=== PATIENT | male | born 1935 ===

== ENCOUNTER 2017-03-19 10:02 | Inpatient (IN) | payer MEDICARE ==
[2017-03-19 10:04] VITALS: BMI 28.1
[2017-03-19] MEDS ORDERED: TDAP Vaccine 0.5 mL Syr IM ONE (10:41)
[2017-03-19 10:58] LABS: BASO % 0.1 % (0.0-2.0); EOS % 0.3 % (0.0-4.0); HEMATOCRIT 26.8 % (35.0-51.0); LYMPH # 0.7 K/uL (1.0-4.3); LYMPH % 7.1 % (20.0-40.0); MEAN CELL VOLUME 68.1 fl (80.0-94.0); MEAN CORPUSCULAR HEMOGLOBIN 20.3 pg (27.0-31.0); MEAN CORPUSCULAR HGB CONC 29.8 g/dL (33.0-37.0); MEAN PLATELET VOLUME 8.9 fl (7.2-11.7); MONO # 0.7 K/uL (0.0-0.8); MONO % 7.5 % (0.0-10.0); NEUT # 8.5 K/uL (1.8-7.0); NRBC % 0.1 % (0.0-0.0); PLATELET COUNT 232 K/uL (130-400); RED CELL DISTRIBUTION WIDTH 18.7 % (11.5-14.5)
--- NOTE | 2017-03-19 10:58 | ED PDOC ---
Syncope/Near Syncope/Dizziness Time Seen by Provider: 03/19/17 10:17 Chief Complaint (Nursing): Dizziness/Lightheaded Chief Complaint (Provider): Dizziness History Per: Patient Additional Complaint(s): Pt is an 81 yr old male who states that he was shopping for groceries at the store and his cart wheeled away from him (it "got loose") he felt off balance when he didn't have the support of his cart and he fell to the ground and hit the right side of his face on the ground. When EMS came and he later went to stand up he felt very dizzy (almost passed out--describes it as a lightheadedness). Pt states that his face does not hurt. No LOC. No CISNEROS. No CP. His tetanus immunization status is not UTD. Pt also c/o of a mass on his sternum (manubrium) for about a month--this mass has come and gone in the past. No neck pain. Pt with no additional complaints at this time. PMD: Dr. Roman ([place]) . Past Medical History Reviewed: Historical Data, Nursing Documentation, Vital Signs Vital Signs: Last Vital Signs Temp 98.8 F 03/19/17 10:04 Pulse 96 H 03/19/17 10:04 Resp 17 03/19/17 10:04 BP 98/61 L 03/19/17 10:04 Pulse Ox 95 03/19/17 10:04 - Medical History PMH: Diabetes, HTN, Hypercholesterolemia - Family History Family History: States: No Known Family Hx - Social History Current smoker - smoking cessation education provided: No Ex-Smoker (has not smoked in the last 12 months): No Alcohol: None Drugs: Denies - Immunization History Hx Tetanus Toxoid Vaccination: No - Home Medications Home Medications: Ambulatory Orders Medication Instructions Recorded Linagliptin [Tradjenta] 5 mg PO DAILY 03/19/17 Metoprolol Succinate [Toprol XL] 25 mg PO DAILY 03/19/17 Simvastatin [Zocor] 20 mg PO HS 03/19/17 Tamsulosin [Flomax] 0.8 mg PO HS 03/19/17 - Allergies Allergies/Adverse Reactions: Allergies Allergy/AdvReac Type Severity Reaction Status Date / Time No Known Allergies Allergy Verified 03/19/17 10:13 Review of Systems ROS Statement: Except As Marked, All Systems Reviewed And Found Negative Constitutional: Negative for: Fever Cardiovascular: Negative for: Chest Pain Respiratory: Negative for: Shortness of Breath Gastrointestinal: Negative for: Nausea, Vomiting, Abdominal Pain Neurological: Positive for: Dizziness. Negative for: Weakness Physical Exam - Reviewed Nursing Documentation Reviewed: Yes Vital Signs Reviewed: Yes - Physical Exam Appears: Positive for: Well, No Acute Distress Head Exam: Positive for: NORMOCEPHALIC Skin: Positive for: Warm, Dry ((+) facial abrasions to right side of face; no laceration repair(s) required) Eye Exam: Positive for: Normal appearance ENT: Positive for: Normal ENT Inspection Neck: Positive for: Normal, Painless ROM Cardiovascular/Chest: Positive for: Regular Rate, Rhythm, Chest Non Tender, Other ((+) large, soft, nontender mass located at manubrium) Respiratory: Positive for: Normal Breath Sounds. Negative for: Rales, Rhonchi, Wheezing Gastrointestinal/Abdominal: Positive for: Normal Exam, Bowel Sounds, Soft. 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 Pt is also w/ low H/H. Therefore, pt with true symptomatic anemia. I just sent stool for occult blood--will f/u lab result. Will admit to Dr. Jagdish Guerrero service--case handed off to Dr. Guerrero Disposition - Clinical Impression Clinical Impression: Dizziness, Symptomatic anemia, Fall, Near syncope, Facial contusion - Patient ED Disposition Is Patient to be Admitted: Yes - Disposition Disposition Time: 13:08 Condition: FAIR
[2017-03-19 10:59] LABS: ALB/GLOB RATIO 1.1 (1.0-2.1); ALKALINE PHOSPHATASE 261 U/L (38-126); ALT/SGPT 40 U/L (21-72); AST/SGOT 77 U/L (17-59); BILIRUBIN,TOTAL 0.8 mg/dl (0.2-1.3); BLOOD UREA NITROGEN 20 mg/dl (9-20); CALCIUM 8.9 mg/dL (8.4-10.2); CARBON DIOXIDE 24 mmol/L (22-30); CHLORIDE 101 mmol/L (98-107); GFR AFRICAN-AMERICAN > 60; GLUCOSE,RANDOM 289 mg/dL (75-110); MAGNESIUM 1.7 MG/DL (1.6-2.3); PHOSPHOROUS 2.6 mg/dl (2.5-4.5); POTASSIUM 3.9 MMOL/L (3.6-5.0); SODIUM 135 mmol/l (132-148); TOTAL PROTEIN 7.5 G/DL (6.3-8.2)
[2017-03-19] MEDS ORDERED: Sodium Chloride 0.9% 500 ML IV SCH (11:15)
[2017-03-19 11:30] LABS: EOSINOPHIL 1 % (0-7); NEUTROPHIL 84 % (42-75); TOTAL CELLS COUNTED 100
--- NOTE | 2017-03-19 11:49 | CT ---
PROCEDURE: CT HEAD WITHOUT CONTRAST. HISTORY: Pt with dizziness and near syncope COMPARISON: None available. TECHNIQUE: Axial computed tomography images were obtained through the head/brain without intravenous contrast. Radiation dose: Total exam DLP = 1035.31 mGy-cm. This CT exam was performed using one or more of the following dose reduction techniques: Automated exposure control, adjustment of the mA and/or kV according to patient size, and/or use of iterative reconstruction technique. FINDINGS: HEMORRHAGE: No intracranial hemorrhage. BRAIN: No mass effect or edema. Moderate atrophy is noted. There is also mild white matter changes suggestive but nonspecific for chronic microvascular ischemic disease. VENTRICLES: Unremarkable. No hydrocephalus. CALVARIUM: Unremarkable. PARANASAL SINUSES: Unremarkable as visualized. No significant inflammatory changes. MASTOID AIR CELLS: Unremarkable as visualized. No inflammatory changes. OTHER FINDINGS: None. IMPRESSION: No evidence of acute intracranial hemorrhage territorial infarct mass effect or midline shift. Moderate atrophy and mild chronic microvascular white matter ischemic disease.
[2017-03-19 11:50] LABS: PARTIAL THROMBOPLASTIN TIME 28.9 Seconds (25.6-37.1)
--- NOTE | 2017-03-19 12:22 | CT ---
PROCEDURE: CT ORBITS WITHOUT CONTRAST. HISTORY: Pt fell and hit the right side of his face r/o fx COMPARISON: None available. TECHNIQUE: Axial CT images of the orbits were obtained. Coronal and sagittal reformats were generated. Radiation dose: Total exam DLP = 731.14 mGy-cm. This CT exam was performed using one or more of the following dose reduction techniques: Automated exposure control, adjustment of the mA and/or kV according to patient size, and/or use of iterative reconstruction technique. FINDINGS: RIGHT ORBIT: RIGHT BONY ORBIT: Normal. RIGHT INTRAORBITAL STRUCTURES: Globe: Normal. Extraocular muscles: Normal. Post septal space: Normal. Optic Nerve: Normal. Lacrimal Apparatus: Normal. RIGHT PRESEPTAL SOFT TISSUES: Mild soft tissue swelling seen at the right preseptal region. LEFT ORBIT: LEFT BONY ORBIT: Normal. LEFT INTRAORBITAL STRUCTURES: Globe: Normal. Extraocular muscles: Normal. Post septal space: Normal Optic Nerve: Normal. . Lacrimal Apparatus: Normal. LEFT PRESEPTAL SOFT TISSUES: Mild left preseptal soft tissue swelling seen. OTHER: Nasal septum deviation to the left is noted. IMPRESSION: No evidence of acute displaced fracture at the maxillofacial bones and orbits noted in this exam. [id number] periorbital soft tissue swelling seen bilaterally right more than left. No evidence of retrobulbar hematoma.
--- NOTE | 2017-03-19 14:49 | RAD ---
HISTORY: syncope COMPARISON: No prior. FINDINGS: LUNGS: Focal opacity in left upper lobe seen adjacent to the aortic arch. Nonspecific. This could represent focal infiltrate or neoplasm. Followup advised. PLEURA: No significant pleural effusion identified, no pneumothorax apparent. CARDIOVASCULAR: Normal. OSSEOUS STRUCTURES: No significant abnormalities. VISUALIZED UPPER ABDOMEN: Normal. OTHER FINDINGS: None. IMPRESSION: Focal opacity in left upper lobe. Nonspecific. Followup advised. Cannot exclude neoplastic disease. Consider evaluation with chest CT examination if clinically appropriate.
[2017-03-19 19:19] LABS: IRON 21 ug/dL (49-181)
[2017-03-19 20:53] LABS: RBC URINE 2 /hpf (0-3); URINE BACTERIA RARE (<OCC); URINE BILIRUBIN NEGATIVE (NEGATIVE); URINE BLOOD NEGATIVE (NEGATIVE); URINE COLOR YELLOW (YELLOW); URINE GLUCOSE (UA) >=500 mg/dL (Normal); URINE KETONE TRACE mg/dL (NEGATIVE); URINE LEUKOCYTE ESTERASE TRACE Leu/uL (Negative); URINE PROTEIN 30 mg/dL (NEGATIVE); URINE UROBILINOGEN 0.2-1.0 mg/dL (0.2-1.0); WBC URINE 34 /hpf (0-5)
[2017-03-19] MEDS: Insulin Regular 100 units/ml SC SCH (21:24)
--- NOTE | 2017-03-19 23:12 | CP.PCM.CON ---
History of Present Illness - History of Present Illness History of Present Illness: 81 YO SP FALL AND HEAD TRAUMA. PT DENIES LH, DIZZINESS, SYNCOPE, CP, PALP, N/V PRIOR TO FALL. HE STATES HE LEANED ON HIS SHOPPING CART AND IT MOVED FORWARD CAUSING HIM TO FALL. HE ADMITS TO DIZZINESS AFTER FALL AND STANDING. PT DENIES CARDIAC HX. HE HAS HX OF HTN, DYSLIPIDEMIA, DM. UNSURE IF HE HAS HAD ECHO OR ST. PTS EKG REVEALS SR, LAD, AND BIFASICULAR BLOCK. GIVEN AGE FAM HX IS NONCONT. IN ER PT WAS ORTHOSTATIC AND FOUND TO BE SEVERELY ANEMIC. ADDITIONALLY PT HAS A NECK MASS WHICH HE STATES COMES AND GOES. Review of Systems - Constitutional Constitutional: As Per HPI. absent: Anorexia, Chills, Daytime Sleepiness, Excessive Sweating, Fatigue, Fever, Frequent Falls, Headache, Increased Appetite , Lethargy, Malaise, Night Sweats, Snoring, Sleep Apnea, Weight Gain, Weight Loss, Weakness, Other - EENT Eyes: absent: As Per HPI, Blind Spots, Blurred Vision, Change in Vision, Decreased Night Vision, Diplopia, Discharge, Dry Eye, Exophthalmos, Floaters, Irritation, Itchy Eyes, Loss of Peripheral Vision, Pain, Photophobia, Requires Corrective Lenses, Sees Flashes, Spots in Vision, Tunnel Vision, Other Visual Disturbances, Loss of Vision, Other Ears: absent: As Per HPI, Decreased Hearing, Ear Discharge, Ear Pain, Tinnitus, Abnormal Hearing, Disequilibrium, Dizziness, Other Nose/Mouth/Throat: absent: As Per HPI, Epistaxis, Nasal Congestion, Nasal Discharge, Nasal Obstruction, Nasal Trauma, Nose Pain, Post Nasal Drip, Sinus Pain, Sinus Pressure, Bleeding Gums, Change in Voice, Dental Pain, Dry Mouth, Dysphagia, Halitosis, Hoarsness, Lip Swelling, Mouth Lesions, Mouth Pain, Odynophagia, Sore Throat, Throat Swelling, Tongue Swelling, Facial Pain, Neck Pain, Neck Mass, Other - Cardiovascular Cardiovascular: As Per HPI. absent: Acrocyanosis, Chest Pain, Chest Pain at Rest, Chest Pain with Activity, Claudication, Diaphoresis, Dyspnea, Dyspnea on Exertion, Edema, Irregular Heart Rhythm, Pain Radiating to Arm/Neck/Jaw, Leg Edema, Leg Ulcers, Lightheadedness, Orthopnea, Palpitations, Paroxysmal Nocturnal Dyspnea, Pedal Edema, Radiating Pain, Rapid Heart Rate, Slow Heart Rate, Syncope, Other - Respiratory Respiratory: As Per HPI. absent: Cough, Dyspnea, Hemoptysis, Dyspnea on Exertion, Wheezing, Snoring, Stridor, Pain on Inspiration, Chest Congestion, Excessive Mucous Production, Change in Mucous Color, Pain with Coughing, Other - Gastrointestinal Gastrointestinal: As Per HPI. absent: Abdominal Pain, Belching, Bloating, Change in Bowel Habits, Change in Stool Character, Coffee Ground Emesis, Constipation, Cramping, Diarrhea, Dyspepsia, Dysphagia, Early Satiety, Excessive Flatus, Fecal Incontinence, Heartburn, Hematemesis, Hematochezia, Loose Stools, Melena, Nausea, Odynophagia, Temesmus, Vomiting, Other - Genitourinary Genitourinary: As Per HPI. absent: Change in Urinary Stream, Difficulty Urinating, Dysuria, Flank Pain, Hematuria, Pyuria, Nocturia, Urinary Incontinence, Urinary Frequency, Urinary Hesitance, Urinary Urgency, Voiding Freq/Small Amts, Freq UTI, Hx Renal/Bladder Calculi, Hx /Renal Surgery, Bladder Distension, Other - Musculoskeletal Musculoskeletal: absent: As Per HPI, Abnormal Gait, Arthralgias, Atrophy, Back Pain, Deformity, Joint Swelling, Limited Range of Motion, Loss of Height, Muscle Cramps, Muscle Weakness, Myalgias, Neck Pain, Numbness, Radiating Pain into Limb, Stiffness, Tingling, Other - Integumentary Integumentary: absent: As Per HPI, Acne, Alopecia, Bleeding Lesions, Change in Hair, Change in Nails, Change in Pigmentation, Changing Lesions, Dry Skin, Erythema, Furuncle, Hirsutism, Lesions, New Lesions, Non-Healing Lesions, Photosensitivity, Pruritus, Rash, Skin Pain, Skin Ulcer, Sores, Striae, Swelling , Unusual Bruising, Wounds, Jaundice, Other - Neurological Neurological: absent: As Per HPI, Abnormal Gait, Abnormal Hearing, Abnormal Movements, Abnormal Speech, Behavioral Changes, Burning Sensations, Confusion, Convulsions, Disequilibrium, Dizziness, Numbness, Focal Weakness, Frequent Falls , Headaches, Lack of Coordination, Loss of Vision, Memory Loss, Paresthesias, Radicular Pain, Restless Legs, Sensory Deficit, Syncope, Tingling, Tremor, Vertigo, Weakness, Other Visual Disturbances, Other - Psychiatric Psychiatric: absent: As Per HPI, Abnormal Sleep Pattern, Anhedonia, Anxiety, Auditory Hallucinations, Behavioral Changes, Change in Appetite, Change in Libido, Confusion, Depression, Difficulty Concentrating, Hallucinations, Homicidal Ideation, Hopelessness, Irritability, Memory Loss, Mood Swings, Panic Attacks, Paranoia, Suicidal Ideation, Visual Hallucinations, Tactile Hallucinations, Other - Endocrine Endocrine: absent: As Per HPI, Change in Body Appearance, Change in Libido, Cold Intolorance, Deepening of Voice, Excessive Sweating, Fatigue, Flushing, Heat Intolorance, Increase in Ring/Shoe/Hat Size, Palpitations, Polydipsia, Polyphagia, Polyuria, Other - Hematologic/Lymphatic Hematologic: absent: As Per HPI, Easy Bleeding, Easy Bruising, Lymphadenopathy, Other Past Patient History - Tetanus Immunizations Tetanus Immunization: Unknown - Past Medical History & Family History Past Medical History?: Yes - Past Social History Smoking Status: Never Smoked Chewing Tobacco Use: No Cigar Use: No Alcohol: None Drugs: Denies Home Situation {Lives}: Alone Domestic Violence: Negative - CARDIAC Hx Cardiac Disorders: Yes Hx Hypertension: Yes - PULMONARY Hx Respiratory Disorders: No - NEUROLOGICAL Hx Neurological Disorder: No - HEENT Hx HEENT Problems: No - RENAL Hx Chronic Kidney Disease: No - ENDOCRINE/METABOLIC Hx Endocrine Disorders: Yes Hx Diabetes Mellitus Type 2: Yes - HEMATOLOGICAL/ONCOLOGICAL Hx Blood Disorders: Yes Hx Anemia: Yes - INTEGUMENTARY Hx Dermatological Problems: No - MUSCULOSKELETAL/RHEUMATOLOGICAL Hx Musculoskeletal Disorders: No Hx Falls: Yes - GASTROINTESTINAL Hx Gastrointestinal Disorders: No - GENITOURINARY/GYNECOLOGICAL Hx Genitourinary Disorders: Yes Hx Prostate Problems: Yes (prostaectomy) - PSYCHIATRIC Hx Psychophysiologic Disorder: No Hx Substance Use: No - SURGICAL HISTORY Hx Surgeries: Yes Other/Comment: prostatectomy ,right hip replacement, - ANESTHESIA Hx Anesthesia: Yes Hx Anesthesia Reactions: No Hx Malignant Hyperthermia: No Has any member of the family had a problem w/ anesthesia?: No Meds Allergies/Adverse Reactions: Allergies Allergy/AdvReac Type Severity Reaction Status Date / Time No Known Allergies Allergy Verified 03/19/17 10:13 - Medications Medications: Current Medications Clopidogrel Bisulfate (Plavix) 75 mg PO DAILY TRE Insulin Human Regular (Humulin R) 0 units SC ACHS TRE PRN Reason: Protocol Last Admin: 03/19/17 21:24 Dose: Not Given Metoprolol Succinate (Toprol Xl) 25 mg PO DAILY REPLACED BY [facility] Sitagliptin Phosphate (Januvia) 100 mg PO DAILY REPLACED BY [facility] Tamsulosin HCl (Flomax) 0.8 mg PO HS REPLACED BY [facility] Last Admin: 03/19/17 21:24 Dose: 0.8 mg Physical Exam - Constitutional Appears: Well - Head Exam Additional comments: RIGHT TEMPORAL AND FRONTAL TRAUMA - Eye Exam Eye Exam: EOMI, Normal appearance, PERRL Pupil Exam: NORMAL ACCOMODATION, PERRL - ENT Exam ENT Exam: Mucous Membranes Moist, Normal Exam - Neck Exam Additional comments: LARGE RIGHT SIDED MASS - Respiratory Exam Respiratory Exam: Clear to Auscultation Bilateral, NORMAL BREATHING PATTERN. absent: Accessory Muscle Use, Chest Wall Tenderness, Decreased Breath Sounds, Prolonged Expiratory Phase, Rales, Rhonchi, Wheezes, Respiratory Distress, Stridor - Cardiovascular Exam Cardiovascular Exam: REGULAR RHYTHM, +S1, +S2, Systolic Murmur. absent: Bradycardia, Tachycardia, Clicks, Diastolic murmur, Gallop, Irregular Rhythm, JVD, RRR, Rubs, +S4 - GI/Abdominal Exam GI & Abdominal Exam: Normal Bowel Sounds, Soft. absent: Bruit, Diminished Bowel Sounds, Distended, Firm, Guarding, Hernia, Hyperactive Bowel Sounds, Hypoactive Bowel Sounds, Mass, Organomegaly, Pulsatile Mass, Rebound, Rigid, Tenderness - Rectal Exam Rectal Exam: Deferred - Extremities Exam Extremities exam: Positive for: normal inspection. Negative for: calf tenderness, full ROM, joint swelling, normal capillary refill, pedal edema, tenderness, pedal pulses present - Back Exam Back exam: NORMAL INSPECTION. absent: CVA tenderness (L), CVA tenderness (R), FULL ROM, muscle spasm, paraspinal tenderness, rash noted, tenderness, vertebral tenderness - Neurological Exam Neurological exam: Alert, Oriented x3, Reflexes Normal - Skin Skin Exam: Dry, Intact, Normal Color, Warm Results - Vital Signs Recent Vital Signs: Last Vital Signs Temp 98.3 F 03/19/17 20:10 Pulse 91 H 03/19/17 20:10 Resp 18 03/19/17 20:10 BP 120/70 03/19/17 20:10 Pulse Ox 96 03/19/17 20:10 - Labs Result Diagrams: 03/19/17 10:00 03/19/17 10:00 Labs: Laboratory Results - last 24 hr 03/19/17 03/19/17 03/19/17 13:56 15:55 18:20 Retic Count POC Glucose (mg/dL) 244 H 229 H Iron 21 L TIBC 404 % Saturation 5 L Ferritin Vitamin B12 Urine Color Urine Clarity Urine pH Ur Specific [place] Urine Protein Urine Glucose (UA) Urine Ketones Urine Blood Urine Nitrate Urine Bilirubin Urine Urobilinogen Ur Leukocyte Esterase Urine RBC (Auto) Urine Microscopic WBC Ur Squamous Epith Cells Urine Bacteria 03/19/17 03/19/17 03/19/17 18:20 18:20 20:18 Retic Count 2.0 H POC Glucose (mg/dL) Iron TIBC % Saturation Ferritin 10.4 Vitamin B12 408 Urine Color Yellow Urine Clarity Slighty-cloudy Urine pH 5.0 Ur Specific [place] 1.024 Urine Protein 30 Urine Glucose (UA) >=500 Urine Ketones Trace Urine Blood Negative Urine Nitrate Negative Urine Bilirubin Negative Urine Urobilinogen 0.2-1.0 Ur Leukocyte Esterase Trace Urine RBC (Auto) 2 Urine Microscopic WBC 34 H Ur Squamous Epith Cells < 1 Urine Bacteria Rare 03/19/17 21:24 Retic Count POC Glucose (mg/dL) 258 H Iron TIBC % Saturation Ferritin Vitamin B12 Urine Color Urine Clarity Urine pH Ur Specific [place] Urine Protein Urine Glucose (UA) Urine Ketones Urine Blood Urine Nitrate Urine Bilirubin Urine Urobilinogen Ur Leukocyte Esterase Urine RBC (Auto) Urine Microscopic WBC Ur Squamous Epith Cells Urine Bacteria - EKG Data EKG Interpreted by: Myself EKG shows normal: Sinus rhythm Rate: Normal - EKG Data EKG comments: SEE ABOVE Assessment & Plan (1) Fall Status: Acute (2) Orthostatic hypotension Status: Acute (3) Bifascicular block Status: Acute (4) Symptomatic anemia Status: Acute (5) Elevated BP without diagnosis of hypertension Status: Acute (6) Goiter Status: Acute (7) Facial contusion Status: Acute (8) Dizziness Status: Acute (9) Tachycardia Status: Acute - Assessment and Plan (Free Text) Plan: ALTHOUGH PT DENIES DIZZINESS OR LH PRIOR TO FALL, HE WAS ORTHOSTATIC IN ER AND DOES HAVE SEVERE ANEMIA, HYPOVOLEMIA AND BIFASICULAR BLOCK. PT SHOULD CONTINUE TELE MONITOR. EVAL ANEMIA, ECHO FOR EF, MONITOR LYTES, EEG, CONSIDER EVAL FOR OSTEOPOROSIS. PT HAS RIGHT NECK MASS WHICH APPARENTLY IS INTERMITTENT, WOULD CONSIDER EVAL FOR THYROID GOITER VS OTHER ETIOLOGY. WILL FOLLOW 85 MIN TOTAL CARE TIME
[2017-03-20] MEDS: Insulin Regular 100 units/ml SC SCH ×4 (06:33→21:51)
--- NOTE | 2017-03-20 06:57 | CON ---
DATE: 03/19/2017 LOCATION: The patient's room number is 404, bed 1. REASON FOR CONSULTATION: Dizziness. CHIEF COMPLAINT: The patient was admitted with a history of fall on losing balance while he was shopping. From neurologic point of view, I was called in to evaluate him for further management. HISTORY OF PRESENT ILLNESS: Mr. Keon Crane is an 81-year-old right-handed male while he was stopping in the [employer], the cart moved by itself without control. At the time to grab that cart, he lost his balance and hit his face against the hard surface on his right side. He denies any loss of consciousness. No history of involuntary movement or focal weakness following this. Because of his losing balance, the patient was brought in to [facility] for further evaluation. PAST MEDICAL HISTORY: Non-insulin dependent diabetes mellitus, prostate hypertrophy, hypertension, dyslipidemia. ALLERGIES: NO KNOWN ALLERGIES. PERSONAL HISTORY: Denies smoking or alcohol use. MEDICATIONS: Flomax, insulin, Januvia, and Toprol. REVIEW OF SYSTEMS: As per H and P. PHYSICAL EXAMINATION: VITAL SIGNS: Blood pressure 134/80, mean arterial pressure of 98, respiratory rate 16, and temperature afebrile. NECK: Supple. No carotid bruits. Examination also showed a huge thyromegaly noted, it is hard, nontender. HEART: Heart sounds are regular. CHEST: Fair air entry. EXTREMITIES: No edema on legs. Right side facial abrasion noted. NEUROLOGICAL: The patient is awake, alert, and oriented to person, place, and time. Speech is clear. Naming, repetition, fluency, comprehension all within normal. CRANIAL NERVES: Visual field intact. Pupils reactive to light. Extraocular movement normal. No facial sensory deficit. No facial asymmetry. Hearing is normal. Tongue is midline. Good gag. 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 There is significant weakness due to the pain. He could able to move both lower extremities against the gravity. DEEP TENDON REFLEXES: Biceps to brachialis, triceps 2+. Both knees are absent. Both ankles are absent. Feet has high-arched foot deformity. COORDINATION: [id number] test is intact on his left side. WORKUP: CT of the head reviewed, which does not show any acute pathology is noted. EKG, normal sinus rhythm. LABORATORY DATA: WBC 10.0, hemoglobin 8.0, hematocrit 26.8, and platelet 232. PT 14.5, INR 1.3, PTT 28.9. Sodium 135, potassium 3.9, chloride 101, bicarbonate 24, BUN 20, creatinine 0.8, GFR more than 60, glucose 229. AST 77, and alkaline phosphatase 269. RECOMMENDATIONS: 1. The patient should have MRI of the brain to rule out DIESEL [employer]TER ME[employer]IC territory ischemic process. 2. Carotid Doppler. 3. Anemia should be corrected. The patient should be placed on antiplatelets. This prevents stroke process. The patient should get out of the bed and physical therapy started as soon as possible. Nmoi Ge MD
[2017-03-20 08:00] LABS: ALKALINE PHOSPHATASE 223 U/L (38-126); ALT/SGPT 45 U/L (21-72); AST/SGOT 51 U/L (17-59); BILIRUBIN,TOTAL 1.4 mg/dl (0.2-1.3); BLOOD UREA NITROGEN 20 mg/dl (9-20); CALCIUM 8.8 mg/dL (8.4-10.2); CARBON DIOXIDE 26 mmol/L (22-30); CHLORIDE 102 mmol/L (98-107); GFR AFRICAN-AMERICAN > 60; GLUCOSE,RANDOM 184 mg/dL (75-110); POTASSIUM 3.6 MMOL/L (3.6-5.0); SODIUM 136 mmol/l (132-148)
[2017-03-20 08:02] LABS: CHOLESTEROL 108 mg/dL (0-199)
[2017-03-20] MEDS: Metoprolol Succinate 25 mg XL Tab PO SCH (08:21)
[2017-03-20 08:28] LABS: THYROID STIMULATING HORMONE 2.29 mIU/ML (0.46-4.68)
--- NOTE | 2017-03-20 10:33 | CARD ---
APPROVED REPORT EKG Measurement Heart [id number] <Conclusion> Normal sinus rhythm Right bundle branch block Left anterior fascicular block Bifascicular block Septal infarct, age undetermined Abnormal ECG
[2017-03-20 10:47] LABS: HEMATOCRIT 28.2 % (35.0-51.0); MEAN CELL VOLUME 70.9 fl (80.0-94.0); MEAN CORPUSCULAR HEMOGLOBIN 21.6 pg (27.0-31.0); MEAN CORPUSCULAR HGB CONC 30.5 g/dL (33.0-37.0); RED CELL DISTRIBUTION WIDTH 20.1 % (11.5-14.5); WHITE BLOOD COUNT 8.5 K/uL (4.8-10.8)
--- NOTE | 2017-03-20 11:10 | MRI ---
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 TECHNIQUE: Multiplanar, multisequence MR images of the brain were obtained without intravenous contrast enhancement. FINDINGS: HEMORRHAGE: None DWI: No evidence of an acute or early subacute infarction. BRAIN PARENCHYMA: No mass effect or edema. Chronic microvascular ischemic changes. VENTRICLES: Unremarkable. No hydrocephalus. CRANIUM: Unremarkable. ORBITS: Grossly unremarkable. PARANASAL SINUSES/MASTOIDS: Clear VASCULAR SYSTEM: Skull base flow voids intact. OTHER FINDINGS: None. IMPRESSION: No evidence of acute infarct..
--- NOTE | 2017-03-20 11:29 | CARD ---
APPROVED REPORT EXAM: Two-dimensional and M-mode echocardiogram with Doppler and color Doppler. Other Information Quality : GoodRhythm : NSR INDICATION Syncope 2D DIMENSIONS IVSd1.16 (0.7-1.1cm)LVDd3.96 (3.9-5.9cm) LVOT Diameter3.10 (1.8-2.4cm)PWd1.15 (0.7-1.1cm) IVSs1.11 (0.8-1.2cm)LVDs2.28 (2.5-4.0cm) FS (%) 42.4 %PWs1.24 (0.8-1.2cm) M-Mode DIMENSIONS Left Atrium (MM)4.45 (2.5-4.0cm)IVSd1.25 (0.7-1.1cm) Aortic Root3.46 (2.2-3.7cm)LVDd6.51 (4.0-5.6cm) Aortic Cusp Exc.1.58 (1.5-2.0cm)PWd1.47 (0.7-1.1cm) IVSs1.69 cmFS (%) 42 % LVDs3.75 (2.0-3.8cm)PWs1.91 cm Mitral Valve E/A ratio0.0 TDI E/Lateral E'0.0E/Medial E'0.0 LEFT VENTRICLE The left ventricle is normal size. There is normal left ventricular wall thickness. The left ventricular function is normal. The left ventricular ejection fraction is - 70%. There is normal LV segmental wall motion. Transmitral Doppler flow pattern is abnormal. No left ventricle thrombus noted on this study. There is no ventricular septal defect visualized. There is no left ventricular aneurysm. There is no mass noted in the left ventricle. RIGHT VENTRICLE The right ventricle is normal size. There is normal right ventricular wall thickness. The right ventricular systolic function is normal. ATRIA The left atrium is mildly dilated. There is no thrombus suspected in the left atrium. The right atrium size is normal. The interatrial septum is intact with no evidence for an atrial septal defect. AORTIC VALVE The aortic valve is mildly thickened. No aortic regurgitation is present. There is no aortic valvular stenosis. MITRAL VALVE The mitral valve is normal in structure and function. There is no evidence of mitral valve prolapse. There is no mitral valve stenosis. There is no mitral valve regurgitation noted. TRICUSPID VALVE The tricuspid valve is normal in structure and function. There is trace tricuspid regurgitation. There is no tricuspid valve prolapse or vegetation. There is no tricuspid valve stenosis. PULMONIC VALVE The pulmonic valve is not well visualized. Doppler studies of the PV were not performed. GREAT VESSELS The aortic root is normal in size. The IVC was not well visualized. PERICARDIAL EFFUSION Very small anterior echo free space. There is no pleural effusion. <Conclusion> The left ventricle is normal in size and wall thickness. The left ventricular function is normal. The left ventricular ejection fraction is - 70%. The left atrium is mildly dilated. The aortic valve is mildly thickened but not stenotic. The mitral aor tricuspid valves are normal.
--- NOTE | 2017-03-20 11:58 | CT ---
PROCEDURE: CT Chest without contrast HISTORY: shreya opacity COMPARISON: None. TECHNIQUE: Contiguous axial images were obtained through the chest without intravenous contrast enhancement. Sagittal and coronal reconstructions were performed. Radiation dose (DLP): 736 mGy-cm. This CT exam was performed using one or more of the following dose reduction techniques: Automated exposure control, adjustment of the mA and/or kV according to patient size, and/or use of iterative reconstruction technique. FINDINGS: LUNGS: 4.8 x 5.4 centimeter left upper lobe mass with mediastinal pleural attachment. Additional intraparenchymal nodule measuring 1 centimeter in the right upper lobe. MEDIASTINUM: Unremarkable thoracic aorta. No aneurysm. Normal sized heart. Main pulmonary artery unremarkable. No vascular congestion. No lymphadenopathy. PLEURA: No pleural fluid. No pneumothorax. 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 Destructive changes of both proximal clavicles. Mass-effect upon the right lobe of the thyroid and pre vascular structures in the superior mediastinum. UPPER ABDOMEN: Cholelithiasis. OTHER FINDINGS: None. IMPRESSION: 4.8 x 5.4 centimeter left upper lobe mass with mediastinal pleural attachment. Additional intraparenchymal nodule measuring 1 centimeter in the right upper lobe. 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 Destructive changes of both proximal clavicles. Mass-effect upon the right lobe of the thyroid and pre vascular structures in the superior mediastinum.
--- NOTE | 2017-03-20 12:25 | CP.PCM.PN ---
Subjective - Date & Time of Evaluation Date of Evaluation: 03/20/17 Time of Evaluation: 15:32 - Subjective Subjective: no dizziness or sob Objective - Vital Signs/Intake and Output Vital Signs (last 24 hours): Temp Pulse Resp BP Pulse Ox 98.2 F 82 18 135/80 97 03/20/17 12:13 03/20/17 12:13 03/20/17 12:13 03/20/17 12:13 03/20/17 12:13 Intake and Output: 03/20/17 03/20/17 06:59 18:59 Intake Total 770 Output Total 700 Balance 70 - Medications Medications: Current Medications Clopidogrel Bisulfate (Plavix) 75 mg PO DAILY [facility] Last Admin: 03/20/17 08:20 Dose: 75 mg Insulin Human Regular (Humulin R) 0 units SC [facility] PRN Reason: Protocol Last Admin: 03/20/17 06:33 Dose: 1 u Metoprolol Succinate (Toprol Xl) 25 mg PO DAILY [facility] Last Admin: 03/20/17 08:21 Dose: 25 mg Sitagliptin Phosphate (Januvia) 100 mg PO DAILY [facility] Last Admin: 03/20/17 08:20 Dose: 100 mg Tamsulosin HCl (Flomax) 0.8 mg PO HS [facility] Last Admin: 03/19/17 21:24 Dose: 0.8 mg - Labs Labs: 03/20/17 10:30 03/20/17 06:00 PT 14.5 Seconds (9.8-13.1) H 03/19/17 11:10 INR 1.3 (0.9-1.2) H 03/19/17 11:10 APTT 28.9 Seconds (25.6-37.1) 03/19/17 11:10 - Constitutional Appears: Non-toxic - Head Exam Head Exam: ATRAUMATIC, NORMAL INSPECTION, NORMOCEPHALIC - Eye Exam Eye Exam: EOMI, Normal appearance, PERRL. absent: Conjunctival injection, Nystagmus, Periorbital swelling, Periorbital tenderness, Scleral icterus Pupil Exam: NORMAL ACCOMODATION, PERRL - ENT Exam ENT Exam: Mucous Membranes Moist, Normal Exam. absent: Mucous Membranes Dry, Normal External Ear Exam, Normal Oropharynx, TM's Normal Bilaterally - Neck Exam Neck Exam: absent: Full ROM, Lymphadenopathy, Meningismus, Normal Inspection, Tenderness, Thyromegaly Additional comments: large right sided neck mass - Respiratory Exam Respiratory Exam: Clear to Ausculation Bilateral, NORMAL BREATHING PATTERN - Cardiovascular Exam Cardiovascular Exam: REGULAR RHYTHM, +S1, +S2, Murmur. absent: Bradycardia, Tachycardia, Clicks, Diastolic murmur, Gallop, Irregular Rhythm, JVD, RRR, Rubs , +S4 - GI/Abdominal Exam GI & Abdominal Exam: Soft, Normal Bowel Sounds. absent: Bruit, Distended, Firm , Guarding, Rigid, Tenderness, Diminished Bowel Sounds, Hernia, Hyperactive Bowel Sounds, Hypoactive Bowel Sounds, Organomegaly, Pulsatile Mass, Rebound, Mass - Rectal Exam Rectal Exam: Deferred - Extremities Exam Extremities Exam: Full ROM, Normal Capillary Refill, Normal Inspection. absent : Joint Swelling, Pedal Edema - Back Exam Back Exam: NORMAL INSPECTION. absent: CVA tenderness (L), CVA tenderness (R), Full ROM, muscle spasm, paraspinal tenderness, rash noted, tenderness, vertebral tenderness - Neurological Exam Neurological Exam: Alert, Awake, CN II-XII Intact, Normal Gait, Oriented x3. absent: Abnormal Gait, Altered, Motor Sensory Deficit, Reflexes Normal - Psychiatric Exam Psychiatric exam: Normal Affect, Normal Mood. absent: Agitated, Anxious, Depressed, Flat Affect, Homicidal Ideation, Manic, Suicidal Ideation - Skin Skin Exam: Dry, Intact, Normal Color, Warm. absent: Abrasion, Cyanosis, Diaphoretic, Erythema, Mottled, Pallor, Pallor, Petechiae, Rash, Urticaria, Vesicles Assessment and Plan (1) Fall Status: Acute (2) Orthostatic hypotension Status: Acute (3) Bifascicular block Status: Acute (4) Symptomatic anemia Status: Acute (5) Elevated BP without diagnosis of hypertension Status: Acute (6) Goiter Status: Acute (7) Facial contusion Status: Acute (8) Dizziness Status: Acute (9) Tachycardia Status: Acute - Assessment and Plan (Free Text) Plan: echo shows nml ef pt remains anemic and prerenal await anemia stahl f/u on xrays thyroid panel mildly abn 45 min
--- NOTE | 2017-03-20 13:39 | CP.PCM.HP ---
History of Present Illness - History of Present Illness History of Present Illness: CC: Fall. 81 y/o M brought to ER [facility] to be evaluated for head trauma after a fall while shopping on [place], Pt do not report pain from injuries. Pt hit his R face with the ground after he felt off balance driving a shopping cart that wheeled away from him wile at a grocery store, Pt was on the floor at the arrival of EMS and at the time they help Pt to stand up Pt felt dizziness and likely near syncope, Pt was brought to hospital and was admitted. Worsening symptoms: Severe anemia Hgb 8.0, c/o of a mass in his sternum , that Patient notivced for months , found with lung and chest mass on CT. Pt denied: Fever, chills, n/v/d, palpitations, CP, SOB, cough, sick contact. CT Chest showed: JOSÉ MIGUEL mass with mediatinal pleural attachment, RUL nodule. 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 Mass R lobe of the thyroid. Shoulder X-Ray: Nodular density overlying the R midlung zone. Echo: LV normal function, LVEF 70%. Present on Admission - Present on Admission Any Indicators Present on Admission: No Review of Systems - Constitutional Constitutional: Other (fall.) - EENT Eyes: Other (Orbital swelling R>L.) Ears: Other (negative) Nose/Mouth/Throat: Neck Mass Additional comments: Facial abrasion R side - Cardiovascular Cardiovascular: Other (negative) - Respiratory Respiratory: Other (negative) - Gastrointestinal Gastrointestinal: Other (negative) - Genitourinary Genitourinary: Other (negative) - Musculoskeletal Musculoskeletal: Other (negative) - Integumentary Integumentary: Swelling (2nd to fall) - Neurological Neurological: Other (negative) - Psychiatric Psychiatric: Other (negative) - Endocrine Endocrine: Other (negative) - Hematologic/Lymphatic Hematologic: Other (negative) Past Patient History - Tetanus Immunizations Tetanus Immunization: Unknown - Past Medical History & Family History Past Medical History?: Yes Pertinent Family History: Unknown - Past Social History Smoking Status: Never Smoked Chewing Tobacco Use: No Cigar Use: No Alcohol: None Drugs: Denies Home Situation {Lives}: Alone Domestic Violence: Negative - CARDIAC Hx Cardiac Disorders: Yes Hx Hypertension: Yes - PULMONARY Hx Respiratory Disorders: Yes Hx Pulmonary Embolism: Yes - NEUROLOGICAL Hx Neurological Disorder: No - HEENT Hx HEENT Problems: No - RENAL Hx Chronic Kidney Disease: No - ENDOCRINE/METABOLIC Hx Endocrine Disorders: Yes Hx Diabetes Mellitus Type 2: Yes - HEMATOLOGICAL/ONCOLOGICAL Hx Blood Disorders: Yes Hx Anemia: Yes - INTEGUMENTARY Hx Dermatological Problems: No - MUSCULOSKELETAL/RHEUMATOLOGICAL Hx Musculoskeletal Disorders: Yes Hx Falls: Yes - GASTROINTESTINAL Hx Gastrointestinal Disorders: No - GENITOURINARY/GYNECOLOGICAL Hx Genitourinary Disorders: Yes Hx Prostate Problems: Yes (prostaectomy) - PSYCHIATRIC Hx Psychophysiologic Disorder: No Hx Substance Use: No - SURGICAL HISTORY Hx Surgeries: Yes Other/Comment: prostatectomy ,right hip replacement, - ANESTHESIA Hx Anesthesia: Yes Hx Anesthesia Reactions: No Hx Malignant Hyperthermia: No Has any member of the family had a problem w/ anesthesia?: No Meds Allergies/Adverse Reactions: Allergies Allergy/AdvReac Type Severity Reaction Status Date / Time No Known Allergies Allergy Verified 03/19/17 10:13 Physical Exam - Constitutional Appears: Other (negative) - Head Exam Additional comments: R temporal and frontal face ecchymosos - Eye Exam Eye Exam: Periorbital swelling - ENT Exam ENT Exam: Normal Oropharynx - Neck Exam Additional comments: Large R> L sided Sternum manubrium mass, firm , non tender, erythema skin covering the mass - Respiratory Exam Respiratory Exam: NORMAL BREATHING PATTERN - Cardiovascular Exam Cardiovascular Exam: REGULAR RHYTHM - GI/Abdominal Exam GI & Abdominal Exam: Normal Bowel Sounds, Soft - Extremities Exam Extremities exam: Positive for: normal inspection - Back Exam Back exam: NORMAL INSPECTION - Neurological Exam Neurological exam: Alert, Oriented x3 Additional comments: No focal motor/sensory deficit , Reflex normal - Psychiatric Exam Psychiatric exam: Normal Mood - Skin Skin Exam: Warm Results - Vital Signs Recent Vital Signs: Last Vital Signs Temp 98.2 F 03/20/17 12:13 Pulse 82 03/20/17 12:13 Resp 18 03/20/17 12:13 BP 135/80 03/20/17 12:13 Pulse Ox 97 03/20/17 12:13 reviewed Neli - Labs Result Diagrams: 03/24/17 05:45 03/24/17 05:45 Labs: Laboratory Results - last 24 hr 03/19/17 03/19/17 03/19/17 13:56 15:55 18:20 WBC RBC Hgb Hct MCV MCH MCHC RDW Plt Count Retic Count Sodium Potassium Chloride Carbon Dioxide Anion Gap BUN Creatinine Est GFR ( Amer) Est GFR (Non-Af Amer) POC Glucose (mg/dL) 244 H 229 H Random Glucose Calcium Iron 21 L TIBC 404 % Saturation 5 L Ferritin Total Bilirubin AST ALT Alkaline Phosphatase Lactate Dehydrogenase Total Protein Albumin Globulin Albumin/Globulin Ratio Triglycerides Cholesterol LDL Cholesterol Direct HDL Cholesterol Vitamin B12 Free T4 Thyroxine (T4) Total T3 TSH 3rd Generation Urine Color Urine Clarity Urine pH Ur Specific [place] Urine Protein Urine Glucose (UA) Urine Ketones Urine Blood Urine Nitrate Urine Bilirubin Urine Urobilinogen Ur Leukocyte Esterase Urine RBC (Auto) Urine Microscopic WBC Ur Squamous Epith Cells Urine Bacteria 03/19/17 03/19/17 03/19/17 18:20 18:20 20:18 WBC RBC Hgb Hct MCV MCH MCHC RDW Plt Count Retic Count 2.0 H Sodium Potassium Chloride Carbon Dioxide Anion Gap BUN Creatinine Est GFR ( Amer) Est GFR (Non-Af Amer) POC Glucose (mg/dL) Random Glucose Calcium Iron TIBC % Saturation Ferritin 10.4 Total Bilirubin AST ALT Alkaline Phosphatase Lactate Dehydrogenase Total Protein Albumin Globulin Albumin/Globulin Ratio Triglycerides Cholesterol LDL Cholesterol Direct HDL Cholesterol Vitamin B12 408 Free T4 Thyroxine (T4) Total T3 TSH 3rd Generation Urine Color Yellow Urine Clarity Slighty-cloudy Urine pH 5.0 Ur Specific [place] 1.024 Urine Protein 30 Urine Glucose (UA) >=500 Urine Ketones Trace Urine Blood Negative Urine Nitrate Negative Urine Bilirubin Negative Urine Urobilinogen 0.2-1.0 Ur Leukocyte Esterase Trace Urine RBC (Auto) 2 Urine Microscopic WBC 34 H Ur Squamous Epith Cells < 1 Urine Bacteria Rare 03/19/17 03/20/17 03/20/17 21:24 05:13 06:00 WBC RBC Hgb Hct MCV MCH MCHC RDW Plt Count Retic Count Sodium 136 Potassium 3.6 Chloride 102 Carbon Dioxide 26 Anion Gap 11 BUN 20 Creatinine 0.8 Est GFR ( Amer) > 60 Est GFR (Non-Af Amer) > 60 POC Glucose (mg/dL) 258 H 182 H Random Glucose 184 H Calcium 8.8 Iron TIBC % Saturation Ferritin Total Bilirubin 1.4 H AST 51 ALT 45 Alkaline Phosphatase 223 H Lactate Dehydrogenase 788 H Total Protein 7.0 Albumin 3.5 Globulin 3.5 Albumin/Globulin Ratio 1.0 Triglycerides 78 Cholesterol 108 LDL Cholesterol Direct 40 HDL Cholesterol 41 Vitamin B12 Free T4 Thyroxine (T4) 7.80 Total T3 0.704 L TSH 3rd Generation 2.29 Urine Color Urine Clarity Urine pH Ur Specific [place] Urine Protein Urine Glucose (UA) Urine Ketones Urine Blood Urine Nitrate Urine Bilirubin Urine Urobilinogen Ur Leukocyte Esterase Urine RBC (Auto) Urine Microscopic WBC Ur Squamous Epith Cells Urine Bacteria 03/20/17 03/20/17 03/20/17 06:00 06:00 10:30 WBC 8.5 RBC 3.98 L Hgb 8.6 L Hct 28.2 L MCV 70.9 L D MCH 21.6 L MCHC 30.5 L RDW 20.1 H Plt Count 192 Retic Count 2.0 H Sodium Potassium Chloride Carbon Dioxide Anion Gap BUN Creatinine Est GFR ( Amer) Est GFR (Non-Af Amer) POC Glucose (mg/dL) Random Glucose Calcium Iron TIBC % Saturation Ferritin Total Bilirubin AST ALT Alkaline Phosphatase Lactate Dehydrogenase Total Protein Albumin Globulin Albumin/Globulin Ratio Triglycerides Cholesterol LDL Cholesterol Direct HDL Cholesterol Vitamin B12 Free T4 1.07 Thyroxine (T4) Total T3 TSH 3rd Generation Urine Color Urine Clarity Urine pH Ur Specific [place] Urine Protein Urine Glucose (UA) Urine Ketones Urine Blood Urine Nitrate Urine Bilirubin Urine Urobilinogen Ur Leukocyte Esterase Urine RBC (Auto) Urine Microscopic WBC Ur Squamous Epith Cells Urine Bacteria 03/20/17 10:50 WBC RBC Hgb Hct MCV MCH MCHC RDW Plt Count Retic Count Sodium Potassium Chloride Carbon Dioxide Anion Gap BUN Creatinine Est GFR ( Amer) Est GFR (Non-Af Amer) POC Glucose (mg/dL) 249 H Random Glucose Calcium Iron TIBC % Saturation Ferritin Total Bilirubin AST ALT Alkaline Phosphatase Lactate Dehydrogenase Total Protein Albumin Globulin Albumin/Globulin Ratio Triglycerides Cholesterol LDL Cholesterol Direct HDL Cholesterol Vitamin B12 Free T4 Thyroxine (T4) Total T3 TSH 3rd Generation Urine Color Urine Clarity Urine pH Ur Specific [place] Urine Protein Urine Glucose (UA) Urine Ketones Urine Blood Urine Nitrate Urine Bilirubin Urine Urobilinogen Ur Leukocyte Esterase Urine RBC (Auto) Urine Microscopic WBC Ur Squamous Epith Cells Urine Bacteria reviewed J.P. - EKG Data EKG comments: reviewed J.P. - Impressions Impression: reviewed J.P. - Imaging and Cardiology Chest x-ray Status: Report reviewed by me (Jose MiguelP.) CT scan - chest Status: Report reviewed by me (Jose MiguelP.) CT scan - head Status: Report reviewed by me ([email or web address].) Additional comment: Orbit CT, Echo Reviewed JPedro Assessment & Plan (1) Near syncope Status: Acute Priority: High (2) Fall Status: Acute Priority: High (3) Symptomatic anemia Status: Acute Priority: High (4) Facial contusion Status: Acute Priority: High Comment: Right (5) Lung mass Status: Acute Priority: High (6) Neck mass Status: Acute Priority: High (7) Diabetes mellitus Status: Acute Priority: Medium (8) HTN (hypertension) Status: Acute Priority: Medium - Assessment and Plan (Free Text) Plan: F/U Carotid U-S, Continue , Metropolol, Insulin and rest of Tx, Neuro and Cardiology consult appreciated, GI and Hematology consult , IR consult for needle Bx neck mass - Date & Time Date: 03/20/17 Time: 12:30
[2017-03-20 17:13] LABS: FOLATE 18.8 ng/mL
--- NOTE | 2017-03-21 01:19 | CP.PCM.CON ---
History of Present Illness - History of Present Illness History of Present Illness: 81 yo male admitted after falling while grocery shopping. When trying to get up was found to be dizzy and brought to the ER. Review of Systems - Constitutional Constitutional: absent: Chills - EENT Eyes: absent: Change in Vision Ears: absent: Decreased Hearing Nose/Mouth/Throat: absent: Epistaxis - Cardiovascular Cardiovascular: absent: Chest Pain - Respiratory Respiratory: absent: Dyspnea - Gastrointestinal Gastrointestinal: absent: Abdominal Pain - Musculoskeletal Musculoskeletal: absent: Abnormal Gait Past Patient History - Tetanus Immunizations Tetanus Immunization: Unknown - Past Medical History & Family History Past Medical History?: Yes - Past Social History Smoking Status: Never Smoked Chewing Tobacco Use: No Cigar Use: No Alcohol: None Drugs: Denies Home Situation {Lives}: Alone Domestic Violence: Negative - CARDIAC Hx Cardiac Disorders: Yes Hx Hypertension: Yes - PULMONARY Hx Respiratory Disorders: No - NEUROLOGICAL Hx Neurological Disorder: No - HEENT Hx HEENT Problems: No - RENAL Hx Chronic Kidney Disease: No - ENDOCRINE/METABOLIC Hx Endocrine Disorders: Yes Hx Diabetes Mellitus Type 2: Yes - HEMATOLOGICAL/ONCOLOGICAL Hx Blood Disorders: Yes Hx Anemia: Yes - INTEGUMENTARY Hx Dermatological Problems: No - MUSCULOSKELETAL/RHEUMATOLOGICAL Hx Musculoskeletal Disorders: No Hx Falls: Yes - GASTROINTESTINAL Hx Gastrointestinal Disorders: No - GENITOURINARY/GYNECOLOGICAL Hx Genitourinary Disorders: Yes Hx Prostate Problems: Yes (prostaectomy) - PSYCHIATRIC Hx Psychophysiologic Disorder: No Hx Substance Use: No - SURGICAL HISTORY Hx Surgeries: Yes Other/Comment: prostatectomy ,right hip replacement, - ANESTHESIA Hx Anesthesia: Yes Hx Anesthesia Reactions: No Hx Malignant Hyperthermia: No Has any member of the family had a problem w/ anesthesia?: No Meds Allergies/Adverse Reactions: Allergies Allergy/AdvReac Type Severity Reaction Status Date / Time No Known Allergies Allergy Verified 03/19/17 10:13 - Medications Medications: Current Medications Clopidogrel Bisulfate (Plavix) 75 mg PO DAILY [facility] Last Admin: 03/20/17 08:20 Dose: 75 mg Insulin Human Regular (Humulin R) 0 units SC [facility] PRN Reason: Protocol Last Admin: 03/20/17 21:51 Dose: Not Given Metoprolol Succinate (Toprol Xl) 25 mg PO DAILY [facility] Last Admin: 03/20/17 08:21 Dose: 25 mg Pantoprazole Sodium (Protonix Ec Tab) 40 mg PO DAILY [facility] Sitagliptin Phosphate (Januvia) 100 mg PO DAILY [facility] Last Admin: 03/20/17 08:20 Dose: 100 mg Tamsulosin HCl (Flomax) 0.8 mg PO HS [facility] Last Admin: 03/20/17 21:08 Dose: 0.8 mg Physical Exam - Head Exam Additional comments: Ecchymosis from fall - Eye Exam Eye Exam: Normal appearance - ENT Exam ENT Exam: Mucous Membranes Moist - Neck Exam Additional comments: mass right side of neck - Respiratory Exam Respiratory Exam: Clear to Auscultation Bilateral - Cardiovascular Exam Cardiovascular Exam: REGULAR RHYTHM, +S1, +S2 - GI/Abdominal Exam GI & Abdominal Exam: Normal Bowel Sounds, Soft. absent: Tenderness Results - Vital Signs Recent Vital Signs: Last Vital Signs Temp 98.9 F 03/20/17 23:50 Pulse 91 H 03/20/17 23:50 Resp 20 03/20/17 23:50 BP 115/75 03/20/17 23:50 Pulse Ox 97 03/20/17 23:50 - Labs Result Diagrams: 03/20/17 10:30 03/20/17 06:00 Labs: Laboratory Results - last 24 hr 03/19/17 03/20/17 03/20/17 18:20 05:13 06:00 WBC RBC Hgb Hct MCV MCH MCHC RDW Plt Count Retic Count Sodium 136 Potassium 3.6 Chloride 102 Carbon Dioxide 26 Anion Gap 11 BUN 20 Creatinine 0.8 Est GFR ( Amer) > 60 Est GFR (Non-Af Amer) > 60 POC Glucose (mg/dL) 182 H Random Glucose 184 H Calcium 8.8 Total Bilirubin 1.4 H AST 51 ALT 45 Alkaline Phosphatase 223 H Lactate Dehydrogenase 788 H Total Protein 7.0 Albumin 3.5 Globulin 3.5 Albumin/Globulin Ratio 1.0 Triglycerides 78 Cholesterol 108 LDL Cholesterol Direct 40 HDL Cholesterol 41 Folate 18.8 RBC Folate >1000 Free T4 Thyroxine (T4) 7.80 Total T3 0.704 L TSH 3rd Generation 2.29 03/20/17 03/20/17 03/20/17 06:00 06:00 10:30 WBC 8.5 RBC 3.98 L Hgb 8.6 L Hct 28.2 L MCV 70.9 L D MCH 21.6 L MCHC 30.5 L RDW 20.1 H Plt Count 192 Retic Count 2.0 H Sodium Potassium Chloride Carbon Dioxide Anion Gap BUN Creatinine Est GFR ( Amer) Est GFR (Non-Af Amer) POC Glucose (mg/dL) Random Glucose Calcium Total Bilirubin AST ALT Alkaline Phosphatase Lactate Dehydrogenase Total Protein Albumin Globulin Albumin/Globulin Ratio Triglycerides Cholesterol LDL Cholesterol Direct HDL Cholesterol Folate RBC Folate Free T4 1.07 Thyroxine (T4) Total T3 TSH 3rd Generation 03/20/17 03/20/17 03/20/17 10:50 15:58 20:59 WBC RBC Hgb Hct MCV MCH MCHC RDW Plt Count Retic Count Sodium Potassium Chloride Carbon Dioxide Anion Gap BUN Creatinine Est GFR ( Amer) Est GFR (Non-Af Amer) POC Glucose (mg/dL) 249 H 201 H 258 H Random Glucose Calcium Total Bilirubin AST ALT Alkaline Phosphatase Lactate Dehydrogenase Total Protein Albumin Globulin Albumin/Globulin Ratio Triglycerides Cholesterol LDL Cholesterol Direct HDL Cholesterol Folate RBC Folate Free T4 Thyroxine (T4) Total T3 TSH 3rd Generation Assessment & Plan (1) Anemia Assessment and Plan: Patient with microcytic anemia and elevated BUN/creatinine. Stool negative for occult blood though he could have had a subacute GI bleed. Protonix started, upper endoscopy Wednesday. Oncology evaluation for lung mass and lesion of sternum Status: Acute - Date & Time Date: 03/20/17 Time: 23:45
[2017-03-21] MEDS: Insulin Regular 100 units/ml SC SCH ×4 (06:36→21:27)
[2017-03-21] MEDS: Pantoprazole 40 mg EC Tab PO SCH (09:10)
[2017-03-21] MEDS: Metoprolol Succinate 25 mg XL Tab PO SCH (09:10)
--- NOTE | 2017-03-21 09:56 | RAD ---
HISTORY: fall and pain COMPARISON: No prior FINDINGS: BONES: Normal. No fracture. JOINTS: Normal. No osteoarthritis. SOFT TISSUE: Normal. OTHER FINDINGS: 13 millimeter nodular density overlying the right midlung zone.. IMPRESSION: 13 millimeter nodular density overlying the right midlung zone.
--- NOTE | 2017-03-21 12:33 | CP.PCM.PN ---
Subjective - Date & Time of Evaluation Date of Evaluation: 03/21/17 Time of Evaluation: 10:35 - Subjective Subjective: F/U Lung Mass Pt with no c/o, no pain in the clavicular-sternal mass , but c/o of L shoulder pain, no SOB, no chest congestion, Pt went out this morning, in and out to the bed side commode and denied weakness. c/o of L shoulder pain. Objective - Vital Signs/Intake and Output Vital Signs (last 24 hours): Temp Pulse Resp BP Pulse Ox 98.7 F 80 18 124/74 94 L 03/21/17 08:29 03/21/17 09:10 03/21/17 08:29 03/21/17 09:10 03/21/17 08:29 - Medications Medications: Current Medications Clopidogrel Bisulfate (Plavix) 75 mg PO DAILY [facility] Last Admin: 03/21/17 09:09 Dose: 75 mg Insulin Human Regular (Humulin R) 0 units SC ACHS [facility] PRN Reason: Protocol Last Admin: 03/21/17 06:36 Dose: 1 u Metoprolol Succinate (Toprol Xl) 25 mg PO DAILY [facility] Last Admin: 03/21/17 09:10 Dose: 25 mg Pantoprazole Sodium (Protonix Ec Tab) 40 mg PO DAILY [facility] Last Admin: 03/21/17 09:10 Dose: 40 mg Sitagliptin Phosphate (Januvia) 100 mg PO DAILY [facility] Last Admin: 03/21/17 09:09 Dose: 100 mg Tamsulosin HCl (Flomax) 0.8 mg PO HS [facility] Last Admin: 03/20/17 21:08 Dose: 0.8 mg - Labs Labs: 03/20/17 10:30 03/20/17 06:00 PT 14.5 Seconds (9.8-13.1) H 03/19/17 11:10 INR 1.3 (0.9-1.2) H 03/19/17 11:10 APTT 28.9 Seconds (25.6-37.1) 03/19/17 11:10 - Constitutional Appears: No Acute Distress - Head Exam Additional comments: R temporal and frontal trauma, ecchymosis R face. - Eye Exam Eye Exam: Periorbital swelling - ENT Exam ENT Exam: Normal Oropharynx - Neck Exam Additional comments: Large R > L sternal manubrium supraclavicular neck mass - Respiratory Exam Respiratory Exam: NORMAL BREATHING PATTERN - Cardiovascular Exam Cardiovascular Exam: REGULAR RHYTHM - GI/Abdominal Exam GI & Abdominal Exam: Soft, Normal Bowel Sounds - Extremities Exam Extremities Exam: Normal Inspection - Back Exam Back Exam: NORMAL INSPECTION - Neurological Exam Neurological Exam: Alert, Oriented x3, Reflexes Normal. absent: Motor Sensory Deficit - Psychiatric Exam Psychiatric exam: Normal Mood - Skin Skin Exam: Warm Assessment and Plan (1) Lung mass Status: Acute (2) Neck mass Status: Acute (3) Near syncope Status: Acute (4) Facial contusion Status: Acute (5) Fall Status: Acute (6) Symptomatic anemia Status: Acute (7) Diabetes mellitus Status: Acute (8) HTN (hypertension) Status: Acute - Assessment and Plan (Free Text) Plan: Continue current Tx,Iron IV for Anemia and rest of treatment, IR for Needle Bx of the mass in AM.
--- NOTE | 2017-03-21 18:46 | CP.PCM.CON ---
History of Present Illness - History of Present Illness History of Present Illness: 81 year old male with a history of DM, admitted s/p fall while at the grocery store, found to be anemic and chest wall/lung mass concerning for malignancy. The patient notes to his shopping cart rolling which caused him to lose his balance and fall. He struck his right face and side. He denies loss of consciousness. He also noted to an upper chest wall/neck mass slowly growing for the past 2 months. He denies shortness of breath or trouble swallowing. Past medical history: DM Past surgical history: Right hip replacement Family history: Denies hematologic and oncologic problems Social history: Denies tobacco, alcohol, and illicit drug use. Allergies: NKA Review of systems: All remaining review of systems including HEENT, cardiovascular, respiratory, gastrointestinal, genitourinary, musculoskeletal, dermatologic, neurologic, and psychiatric are negative unless mentioned in the HPI. Past Patient History - Tetanus Immunizations Tetanus Immunization: Unknown - Past Medical History & Family History Past Medical History?: Yes - Past Social History Smoking Status: Never Smoked Chewing Tobacco Use: No Cigar Use: No Alcohol: None Drugs: Denies Home Situation {Lives}: Alone Domestic Violence: Negative - CARDIAC Hx Cardiac Disorders: Yes Hx Hypertension: Yes - PULMONARY Hx Respiratory Disorders: No - NEUROLOGICAL Hx Neurological Disorder: No - HEENT Hx HEENT Problems: No - RENAL Hx Chronic Kidney Disease: No - ENDOCRINE/METABOLIC Hx Endocrine Disorders: Yes Hx Diabetes Mellitus Type 2: Yes - HEMATOLOGICAL/ONCOLOGICAL Hx Blood Disorders: Yes Hx Anemia: Yes - INTEGUMENTARY Hx Dermatological Problems: No - MUSCULOSKELETAL/RHEUMATOLOGICAL Hx Musculoskeletal Disorders: No Hx Falls: Yes - GASTROINTESTINAL Hx Gastrointestinal Disorders: No - GENITOURINARY/GYNECOLOGICAL Hx Genitourinary Disorders: Yes Hx Prostate Problems: Yes (prostaectomy) - PSYCHIATRIC Hx Psychophysiologic Disorder: No Hx Substance Use: No - SURGICAL HISTORY Hx Surgeries: Yes Other/Comment: prostatectomy ,right hip replacement, - ANESTHESIA Hx Anesthesia: Yes Hx Anesthesia Reactions: No Hx Malignant Hyperthermia: No Has any member of the family had a problem w/ anesthesia?: No Meds Allergies/Adverse Reactions: Allergies Allergy/AdvReac Type Severity Reaction Status Date / Time No Known Allergies Allergy Verified 03/19/17 10:13 - Medications Medications: Current Medications Clopidogrel Bisulfate (Plavix) 75 mg PO DAILY [facility] Last Admin: 03/21/17 09:09 Dose: 75 mg Iron Sucrose 200 mg/ Sodium (Chloride) 110 mls @ 110 mls/hr IVPB DAILY [facility] Last Admin: 03/21/17 17:57 Dose: 110 mls/hr Insulin Human Regular (Humulin R) 0 units SC ACHS [facility] PRN Reason: Protocol Last Admin: 03/21/17 17:52 Dose: 1 u Metoprolol Succinate (Toprol Xl) 25 mg PO DAILY [facility] Last Admin: 03/21/17 09:10 Dose: 25 mg Pantoprazole Sodium (Protonix Ec Tab) 40 mg PO DAILY [facility] Last Admin: 03/21/17 09:10 Dose: 40 mg Sitagliptin Phosphate (Januvia) 100 mg PO DAILY [facility] Last Admin: 03/21/17 09:09 Dose: 100 mg Tamsulosin HCl (Flomax) 0.8 mg PO HS [facility] Last Admin: 03/20/17 21:08 Dose: 0.8 mg Physical Exam - Head Exam Additional comments: Right facial abrasion - Eye Exam Eye Exam: Normal appearance - ENT Exam ENT Exam: Mucous Membranes Dry - Respiratory Exam Respiratory Exam: NORMAL BREATHING PATTERN - Cardiovascular Exam Cardiovascular Exam: +S1, +S2 - GI/Abdominal Exam GI & Abdominal Exam: Normal Bowel Sounds - Extremities Exam Extremities exam: Positive for: normal inspection - Neurological Exam Neurological exam: Oriented x3 - Psychiatric Exam Psychiatric exam: Normal Affect, Normal Mood - Skin Skin Exam: Warm Results - Vital Signs Recent Vital Signs: Last Vital Signs Temp 98.7 F 03/21/17 16:26 Pulse 85 03/21/17 16:26 Resp 18 03/21/17 16:26 BP 121/76 03/21/17 16:26 Pulse Ox 96 03/21/17 16:26 - Labs Result Diagrams: 03/20/17 10:30 03/20/17 06:00 Labs: Laboratory Results - last 24 hr 03/19/17 03/20/17 03/21/17 18:20 20:59 05:35 POC Glucose (mg/dL) 258 H 167 H RBC Folate >1000 03/21/17 03/21/17 11:55 15:55 POC Glucose (mg/dL) 239 H 181 H RBC Folate Assessment & Plan (1) Anemia Assessment and Plan: work up consistent with iron deficiency anemia GI following will start IV iron Status: Acute (2) Lung mass Assessment and Plan: pleural and mediastinal involvment presternal/sternal mass recommend tissue biopsy to evaluate for malignancy Thank you for this interesting consult. Status: Acute
--- NOTE | 2017-03-21 22:45 | CP.PCM.PN ---
Subjective - Date & Time of Evaluation Date of Evaluation: 03/21/17 Time of Evaluation: 17:00 - Subjective Subjective: NO LH, PALP OR DIZZINESS Objective - Vital Signs/Intake and Output Vital Signs (last 24 hours): Temp Pulse Resp BP Pulse Ox 99.1 F 85 18 122/74 96 03/21/17 20:04 03/21/17 20:04 03/21/17 20:04 03/21/17 20:04 03/21/17 20:04 Intake and Output: 03/21/17 03/22/17 18:59 06:59 Intake Total 1300 Balance 1300 - Medications Medications: Current Medications Clopidogrel Bisulfate (Plavix) 75 mg PO DAILY [facility] Last Admin: 03/21/17 09:09 Dose: 75 mg Iron Sucrose 200 mg/ Sodium (Chloride) 110 mls @ 110 mls/hr IVPB DAILY [facility] Last Admin: 03/21/17 17:57 Dose: 110 mls/hr Insulin Human Regular (Humulin R) 0 units SC ACHS [facility] PRN Reason: Protocol Last Admin: 03/21/17 21:27 Dose: Not Given Metoprolol Succinate (Toprol Xl) 25 mg PO DAILY [facility] Last Admin: 03/21/17 09:10 Dose: 25 mg Pantoprazole Sodium (Protonix Ec Tab) 40 mg PO DAILY [facility] Last Admin: 03/21/17 09:10 Dose: 40 mg Sitagliptin Phosphate (Januvia) 100 mg PO DAILY [facility] Last Admin: 03/21/17 09:09 Dose: 100 mg Tamsulosin HCl (Flomax) 0.8 mg PO [facility] Last Admin: 03/21/17 21:27 Dose: 0.8 mg - Labs Labs: 03/20/17 10:30 03/20/17 06:00 PT 14.5 Seconds (9.8-13.1) H 03/19/17 11:10 INR 1.3 (0.9-1.2) H 03/19/17 11:10 APTT 28.9 Seconds (25.6-37.1) 03/19/17 11:10 Assessment and Plan (1) Fall Status: Acute (2) Orthostatic hypotension Status: Acute (3) Bifascicular block Status: Acute (4) Symptomatic anemia Status: Acute (5) Elevated BP without diagnosis of hypertension Status: Acute (6) Goiter Status: Acute (7) Facial contusion Status: Acute (8) Dizziness Status: Acute (9) Tachycardia Status: Acute
[2017-03-22] MEDS: Insulin Regular 100 units/ml SC SCH ×4 (06:57→21:25)
[2017-03-22] MEDS: Metoprolol Succinate 25 mg XL Tab PO SCH (08:51)
[2017-03-22] MEDS: Pantoprazole 40 mg EC Tab PO SCH (08:51)
--- NOTE | 2017-03-22 11:19 | US ---
PROCEDURE: Duplex ultrasound of the carotid and vertebral arteries. HISTORY: syncope COMPARISON: None available. TECHNIQUE: Grayscale and duplex Doppler evaluation of the cervical carotid and vertebral arteries were performed. The common carotid, carotid bifurcations and cervical ICA and proximal ECA were evaluated. The vertebral arteries were evaluated for gross patency and direction. FINDINGS: RIGHT CAROTID ARTERIES: Common Carotid Artery: Normal. Maximal flow velocity of 93.4 cm/s. Carotid Bifurcation: Normal. Internal Carotid Artery:Heterogeneous plaque formation. Maximal flow velocity of 84.0 cm/s. External Carotid Artery (proximal branches): Normal. Maximal flow velocity of 85.3 cm/s. ICA/CCA Ratio: 0.9 LEFT CAROTID ARTERIES: Common Carotid Artery: Normal. Maximal flow velocity of 145.6 cm/s. Carotid Bifurcation: Unremarkable. Internal Carotid Artery:Heterogeneous plaque formation. Maximal flow velocity of 68.7 cm/s. External Carotid Artery (proximal branches): Normal. Maximal flow velocity of 71.1 cm/s. ICA/CCA Ratio: 0.5 VERTEBRAL ARTERIES: Right Vertebral Artery: Patent. Antegrade flow. Left Vertebral Artery: Patent. Antegrade flow. OTHER FINDINGS: None. IMPRESSION: Right ICA degree of stenosis: Less than 50% Left ICA degree of stenosis: Less than 50% Reference Internal Carotid Artery (ICA) Peak Systolic Velocity (PSV) for above: 1. Less than 50% stenosis less than 125 cm/s peak systolic velocity 2. 50-69% stenosis 125-230cm/s peak systolic velocity 3. Greater than 70% but less than near occlusion greater than 230 cm/s peak systolic velocity
[2017-03-22] MEDS ORDERED: Lidocaine 1% Inj (20ml) ONE (14:54)
--- NOTE | 2017-03-22 15:02 | CP.PCM.PN ---
Subjective - Date & Time of Evaluation Date of Evaluation: 03/22/17 Time of Evaluation: 11:10 - Subjective Subjective: F/U Lung Mass. Pt with N/C, no pain in the sternal and large supracavicular mass Objective - Vital Signs/Intake and Output Vital Signs (last 24 hours): Temp Pulse Resp BP Pulse Ox 98.2 F 80 18 109/68 96 03/22/17 12:00 03/22/17 12:00 03/22/17 12:00 03/22/17 12:00 03/22/17 12:00 Intake and Output: 03/22/17 03/22/17 06:59 18:59 Intake Total 240 Balance 240 - Medications Medications: Current Medications Clopidogrel Bisulfate (Plavix) 75 mg PO DAILY [facility] Last Admin: 03/22/17 08:51 Dose: Not Given Iron Sucrose 200 mg/ Sodium (Chloride) 110 mls @ 110 mls/hr IVPB DAILY [facility] Last Admin: 03/22/17 08:52 Dose: 110 mls/hr Insulin Human Regular (Humulin R) 0 units SC ACHS [facility] PRN Reason: Protocol Last Admin: 03/22/17 06:57 Dose: Not Given Metoprolol Succinate (Toprol Xl) 25 mg PO DAILY [facility] Last Admin: 03/22/17 08:51 Dose: 25 mg Pantoprazole Sodium (Protonix Ec Tab) 40 mg PO DAILY [facility] Last Admin: 03/22/17 08:51 Dose: Not Given Sitagliptin Phosphate (Januvia) 100 mg PO DAILY [facility] Last Admin: 03/22/17 08:50 Dose: Not Given Tamsulosin HCl (Flomax) 0.8 mg PO [facility] Last Admin: 03/21/17 21:27 Dose: 0.8 mg - Labs Labs: 03/20/17 10:30 03/20/17 06:00 PT 14.5 Seconds (9.8-13.1) H 03/19/17 11:10 INR 1.3 (0.9-1.2) H 03/19/17 11:10 APTT 28.9 Seconds (25.6-37.1) 03/19/17 11:10 - Constitutional Appears: No Acute Distress - Head Exam Additional comments: R Temporal and frontal trauma, Ecchymosis R face - Eye Exam Eye Exam: Conjunctival injection, Periorbital swelling - ENT Exam ENT Exam: Normal Oropharynx - Neck Exam Additional comments: Large R > L sternal manubrium supraclavicular mass, no tenderness - Respiratory Exam Respiratory Exam: NORMAL BREATHING PATTERN - Cardiovascular Exam Cardiovascular Exam: REGULAR RHYTHM - GI/Abdominal Exam GI & Abdominal Exam: Soft, Normal Bowel Sounds - Extremities Exam Extremities Exam: Normal Inspection - Back Exam Back Exam: NORMAL INSPECTION - Neurological Exam Neurological Exam: Alert, Oriented x3. absent: Motor Sensory Deficit Additional comments: Reflex normal - Psychiatric Exam Psychiatric exam: Normal Mood - Skin Skin Exam: Warm Assessment and Plan (1) Near syncope Status: Acute (2) Facial contusion Status: Acute (3) Lung mass Status: Acute (4) Neck mass Status: Acute (5) Fall Status: Acute (6) Symptomatic anemia Status: Acute (7) Diabetes mellitus Status: Acute (8) HTN (hypertension) Status: Acute - Assessment and Plan (Free Text) Plan: F/U with IR for needle Bx of Sternal mass, continue Iron IV for iron def anemia , GI planning EGD
--- NOTE | 2017-03-22 15:06 | PCM.SURG1 ---
Surgeon's Initial Post Op Note - Surgeon's Notes Surgeon: Lyle Luna MD [place]: None Type of Anesthesia: Local Pre-Operative Diagnosis: Lung cancer Operative Findings: large anterior chest wall mass. Post-Operative Diagnosis: Lung cancer Operation Performed: US guided core biopsy of large anterior chest wall mass. Specimen/Specimens Removed: 18 gauge core x 4 passes Estimated Blood Loss: EBL {In ML}: 0 Blood Products Given: N/A Drains Used: No Drains Post-Op Condition: Fair Date of Surgery/Procedure: 03/22/17 Time of Surgery/Procedure: 15:05
[2017-03-23 06:26] LABS: HEMATOCRIT 28.9 % (35.0-51.0); MEAN CELL VOLUME 71.2 fl (80.0-94.0); MEAN CORPUSCULAR HEMOGLOBIN 21.8 pg (27.0-31.0); MEAN CORPUSCULAR HGB CONC 30.6 g/dL (33.0-37.0); RED CELL DISTRIBUTION WIDTH 21.6 % (11.5-14.5); WHITE BLOOD COUNT 6.1 K/uL (4.8-10.8)
[2017-03-23 06:44] LABS: BLOOD UREA NITROGEN 20 mg/dl (9-20); CARBON DIOXIDE 27 mmol/L (22-30); CHLORIDE 102 mmol/L (98-107); GFR AFRICAN-AMERICAN > 60; GLUCOSE,RANDOM 139 mg/dL (75-110); POTASSIUM 3.5 MMOL/L (3.6-5.0); SODIUM 137 mmol/l (132-148)
[2017-03-23] MEDS: Insulin Regular 100 units/ml SC SCH ×4 (09:13→23:56)
[2017-03-23] MEDS: Pantoprazole 40 mg EC Tab PO SCH (09:14)
[2017-03-23] MEDS: Metoprolol Succinate 25 mg XL Tab PO SCH (09:14)
--- NOTE | 2017-03-23 19:16 | CP.PCM.PN ---
Subjective - Date & Time of Evaluation Date of Evaluation: 03/23/17 Time of Evaluation: 10:00 - Subjective Subjective: F/U Lung Mass Had IR needle , no pain Bx area Objective - Vital Signs/Intake and Output Vital Signs (last 24 hours): Temp Pulse Resp BP Pulse Ox 98.3 F 84 20 105/66 96 03/23/17 16:42 03/23/17 16:42 03/23/17 16:42 03/23/17 15:41 03/23/17 16:42 - Medications Medications: Current Medications Clopidogrel Bisulfate (Plavix) 75 mg PO DAILY [facility] Last Admin: 03/22/17 08:51 Dose: Not Given Iron Sucrose 200 mg/ Sodium (Chloride) 110 mls @ 110 mls/hr IVPB DAILY [facility] Last Admin: 03/23/17 09:14 Dose: 110 mls/hr Insulin Human Regular (Humulin R) 0 units SC ACHS [facility] PRN Reason: Protocol Last Admin: 03/23/17 16:42 Dose: Not Given Metoprolol Succinate (Toprol Xl) 25 mg PO DAILY [facility] Last Admin: 03/23/17 09:14 Dose: 25 mg Pantoprazole Sodium (Protonix Ec Tab) 40 mg PO DAILY [facility] Last Admin: 03/23/17 09:14 Dose: 40 mg Sitagliptin Phosphate (Januvia) 100 mg PO DAILY [facility] Last Admin: 03/23/17 09:13 Dose: 100 mg Tamsulosin HCl (Flomax) 0.8 mg PO HS [facility] Last Admin: 03/22/17 21:11 Dose: 0.8 mg - Labs Labs: 03/23/17 05:35 03/23/17 05:35 PT 14.5 Seconds (9.8-13.1) H 03/19/17 11:10 INR 1.3 (0.9-1.2) H 03/19/17 11:10 APTT 28.9 Seconds (25.6-37.1) 03/19/17 11:10 - Constitutional Appears: No Acute Distress - Head Exam Additional comments: R Temporal and frontal trauma. Ecchymosis R face - Eye Exam Eye Exam: Conjunctival injection, Periorbital swelling Pupil Exam: PERRL - ENT Exam ENT Exam: Normal Oropharynx - Neck Exam Additional comments: Large R > L sternal Manubrium supraclavicular mass , area of Bx cover with dressing - Respiratory Exam Respiratory Exam: NORMAL BREATHING PATTERN - Cardiovascular Exam Cardiovascular Exam: REGULAR RHYTHM - GI/Abdominal Exam GI & Abdominal Exam: Soft, Normal Bowel Sounds - Extremities Exam Extremities Exam: Normal Inspection - Back Exam Back Exam: NORMAL INSPECTION - Neurological Exam Neurological Exam: Alert, Oriented x3. absent: Motor Sensory Deficit Additional comments: Reflex normal - Psychiatric Exam Psychiatric exam: Normal Mood - Skin Skin Exam: Warm Assessment and Plan (1) Near syncope Status: Acute (2) Facial contusion Status: Acute (3) Lung mass Status: Acute (4) Neck mass Status: Acute (5) Fall Status: Acute (6) Symptomatic anemia Status: Acute (7) Diabetes mellitus Status: Acute (8) HTN (hypertension) Status: Acute - Assessment and Plan (Free Text) Plan: Continue Iron IV and rest of treatment , F/U needle Bx Pathology , GI planning EGD
--- NOTE | 2017-03-23 20:38 | CP.PCM.PN ---
Subjective - Date & Time of Evaluation Date of Evaluation: 03/23/17 Time of Evaluation: 18:20 - Subjective Subjective: No complaints s/p IR biopsy of chest wall mass Objective - Vital Signs/Intake and Output Vital Signs (last 24 hours): Temp Pulse Resp BP Pulse Ox 98.3 F 89 20 107/66 95 03/23/17 19:31 03/23/17 19:31 03/23/17 19:31 03/23/17 19:31 03/23/17 19:31 - Medications Medications: Current Medications Clopidogrel Bisulfate (Plavix) 75 mg PO DAILY [facility] Last Admin: 03/22/17 08:51 Dose: Not Given Iron Sucrose 200 mg/ Sodium (Chloride) 110 mls @ 110 mls/hr IVPB DAILY [facility] Last Admin: 03/23/17 09:14 Dose: 110 mls/hr Insulin Human Regular (Humulin R) 0 units SC ACHS [facility] PRN Reason: Protocol Last Admin: 03/23/17 16:42 Dose: Not Given Metoprolol Succinate (Toprol Xl) 25 mg PO DAILY [facility] Last Admin: 03/23/17 09:14 Dose: 25 mg Pantoprazole Sodium (Protonix Ec Tab) 40 mg PO DAILY [facility] Last Admin: 03/23/17 09:14 Dose: 40 mg Sitagliptin Phosphate (Januvia) 100 mg PO DAILY [facility] Last Admin: 03/23/17 09:13 Dose: 100 mg Tamsulosin HCl (Flomax) 0.8 mg PO HS [facility] Last Admin: 03/22/17 21:11 Dose: 0.8 mg - Labs Labs: 03/23/17 05:35 03/23/17 05:35 PT 14.5 Seconds (9.8-13.1) H 03/19/17 11:10 INR 1.3 (0.9-1.2) H 03/19/17 11:10 APTT 28.9 Seconds (25.6-37.1) 03/19/17 11:10 - Head Exam Head Exam: ATRAUMATIC - Eye Exam Eye Exam: Normal appearance - ENT Exam ENT Exam: Mucous Membranes Dry - Respiratory Exam Respiratory Exam: NORMAL BREATHING PATTERN - Cardiovascular Exam Cardiovascular Exam: +S1, +S2 - GI/Abdominal Exam GI & Abdominal Exam: Normal Bowel Sounds - Extremities Exam Extremities Exam: Normal Inspection Assessment and Plan (1) Anemia Assessment & Plan: iron deficiency anemia GI evaluation on IV iron H/H improved Status: Acute (2) Lung mass Assessment & Plan: s/p chest wall mass biopsy f/u pathology Status: Acute
--- NOTE | 2017-03-23 20:42 | CP.PCM.PN ---
Subjective - Date & Time of Evaluation Date of Evaluation: 03/22/17 Time of Evaluation: 21:35 - Subjective Subjective: No complaints. s/p IR biopsy Objective - Vital Signs/Intake and Output Vital Signs (last 24 hours): Temp Pulse Resp BP Pulse Ox 98.3 F 89 20 107/66 95 03/23/17 19:31 03/23/17 19:31 03/23/17 19:31 03/23/17 19:31 03/23/17 19:31 - Medications Medications: Current Medications Clopidogrel Bisulfate (Plavix) 75 mg PO DAILY [facility] Last Admin: 03/22/17 08:51 Dose: Not Given Iron Sucrose 200 mg/ Sodium (Chloride) 110 mls @ 110 mls/hr IVPB DAILY [facility] Last Admin: 03/23/17 09:14 Dose: 110 mls/hr Insulin Human Regular (Humulin R) 0 units SC ACHS [facility] PRN Reason: Protocol Last Admin: 03/23/17 16:42 Dose: Not Given Metoprolol Succinate (Toprol Xl) 25 mg PO DAILY [facility] Last Admin: 03/23/17 09:14 Dose: 25 mg Pantoprazole Sodium (Protonix Ec Tab) 40 mg PO DAILY [facility] Last Admin: 03/23/17 09:14 Dose: 40 mg Sitagliptin Phosphate (Januvia) 100 mg PO DAILY [facility] Last Admin: 03/23/17 09:13 Dose: 100 mg Tamsulosin HCl (Flomax) 0.8 mg PO HS [facility] Last Admin: 03/22/17 21:11 Dose: 0.8 mg - Labs Labs: 03/23/17 05:35 03/23/17 05:35 PT 14.5 Seconds (9.8-13.1) H 03/19/17 11:10 INR 1.3 (0.9-1.2) H 03/19/17 11:10 APTT 28.9 Seconds (25.6-37.1) 03/19/17 11:10 - Head Exam Head Exam: ATRAUMATIC - Eye Exam Eye Exam: Normal appearance - ENT Exam ENT Exam: Mucous Membranes Dry - Respiratory Exam Respiratory Exam: NORMAL BREATHING PATTERN - Cardiovascular Exam Cardiovascular Exam: +S1, +S2 - GI/Abdominal Exam GI & Abdominal Exam: Normal Bowel Sounds - Extremities Exam Extremities Exam: Normal Inspection Assessment and Plan (1) Anemia Assessment & Plan: iron deficiency on IV iron GI w/u Status: Acute (2) Lung mass Assessment & Plan: s/p biopsy f/u pathology Status: Acute
--- NOTE | 2017-03-23 22:26 | CP.PCM.PN ---
Subjective - Date & Time of Evaluation Date of Evaluation: 03/23/17 Time of Evaluation: 15:30 - Subjective Subjective: No further evidence of GI bleeding. Initially had occult blood in stool. Upper endoscopy tomorrow. Objective - Vital Signs/Intake and Output Vital Signs (last 24 hours): Temp Pulse Resp BP Pulse Ox 98.3 F 89 20 107/66 95 03/23/17 19:31 03/23/17 19:31 03/23/17 19:31 03/23/17 19:31 03/23/17 19:31 - Medications Medications: Current Medications Clopidogrel Bisulfate (Plavix) 75 mg PO DAILY [facility] Last Admin: 03/22/17 08:51 Dose: Not Given Iron Sucrose 200 mg/ Sodium (Chloride) 110 mls @ 110 mls/hr IVPB DAILY [facility] Last Admin: 03/23/17 09:14 Dose: 110 mls/hr Insulin Human Regular (Humulin R) 0 units SC ACHS [facility] PRN Reason: Protocol Last Admin: 03/23/17 16:42 Dose: Not Given Metoprolol Succinate (Toprol Xl) 25 mg PO DAILY [facility] Last Admin: 03/23/17 09:14 Dose: 25 mg Pantoprazole Sodium (Protonix Ec Tab) 40 mg PO DAILY [facility] Last Admin: 03/23/17 09:14 Dose: 40 mg Sitagliptin Phosphate (Januvia) 100 mg PO DAILY [facility] Last Admin: 03/23/17 09:13 Dose: 100 mg Tamsulosin HCl (Flomax) 0.8 mg PO HS [facility] Last Admin: 03/22/17 21:11 Dose: 0.8 mg - Labs Labs: 03/23/17 05:35 03/23/17 05:35 PT 14.5 Seconds (9.8-13.1) H 03/19/17 11:10 INR 1.3 (0.9-1.2) H 03/19/17 11:10 APTT 28.9 Seconds (25.6-37.1) 03/19/17 11:10 Assessment and Plan (1) Anemia Status: Acute
[2017-03-24 06:37] LABS: HEMATOCRIT 30.3 % (35.0-51.0); MEAN CORPUSCULAR HEMOGLOBIN 21.9 pg (27.0-31.0); MEAN CORPUSCULAR HGB CONC 30.1 g/dL (33.0-37.0); RED CELL DISTRIBUTION WIDTH 21.8 % (11.5-14.5); WHITE BLOOD COUNT 6.4 K/uL (4.8-10.8)
[2017-03-24 06:46] LABS: BLOOD UREA NITROGEN 19 mg/dl (9-20); CALCIUM 8.9 mg/dL (8.4-10.2); CARBON DIOXIDE 26 mmol/L (22-30); CHLORIDE 102 mmol/L (98-107); GFR AFRICAN-AMERICAN > 60; GLUCOSE,RANDOM 160 mg/dL (75-110); POTASSIUM 3.6 MMOL/L (3.6-5.0); SODIUM 137 mmol/l (132-148)
[2017-03-24] MEDS: Metoprolol Succinate 25 mg XL Tab PO SCH (08:09)
[2017-03-24] MEDS: Pantoprazole 40 mg EC Tab PO SCH (08:10)
[2017-03-24] MEDS: Insulin Regular 100 units/ml SC SCH ×4 (08:11→22:00)
[2017-03-24] MEDS ORDERED: Lactated Ringer's 500 ML IV ONE ×2 (08:30)
--- NOTE | 2017-03-24 09:28 | CP.PCM.PN ---
Subjective - Date & Time of Evaluation Date of Evaluation: 03/24/17 Time of Evaluation: 09:23 - Subjective Subjective: Patient clinicaaly unchanged. No active GI bleeding detected and on pantoprazole. Objective - Vital Signs/Intake and Output Vital Signs (last 24 hours): Temp Pulse Resp BP Pulse Ox 97.9 F 85 12 146/87 96 03/24/17 08:28 03/24/17 08:28 03/24/17 08:28 03/24/17 08:28 03/24/17 08:28 Intake and Output: 03/24/17 03/24/17 06:59 18:59 Intake Total 50 Balance 50 - Medications Medications: Current Medications Clopidogrel Bisulfate (Plavix) 75 mg PO DAILY [facility] Last Admin: 03/22/17 08:51 Dose: Not Given Iron Sucrose 200 mg/ Sodium (Chloride) 110 mls @ 110 mls/hr IVPB DAILY [facility] Last Admin: 03/23/17 09:14 Dose: 110 mls/hr Insulin Human Regular (Humulin R) 0 units SC ACHS [facility] PRN Reason: Protocol Last Admin: 03/24/17 08:11 Dose: Not Given Metoprolol Succinate (Toprol Xl) 25 mg PO DAILY [facility] Last Admin: 03/24/17 08:09 Dose: 25 mg Pantoprazole Sodium (Protonix Ec Tab) 40 mg PO DAILY [facility] Last Admin: 03/24/17 08:10 Dose: 40 mg Sitagliptin Phosphate (Januvia) 100 mg PO DAILY [facility] Last Admin: 03/23/17 09:13 Dose: 100 mg Tamsulosin HCl (Flomax) 0.8 mg PO HS [facility] Last Admin: 03/23/17 23:57 Dose: 0.8 mg - Labs Labs: 03/24/17 05:45 03/24/17 05:45 PT 14.5 Seconds (9.8-13.1) H 03/19/17 11:10 INR 1.3 (0.9-1.2) H 03/19/17 11:10 APTT 28.9 Seconds (25.6-37.1) 03/19/17 11:10 - Head Exam Head Exam: ATRAUMATIC - Eye Exam Eye Exam: Normal appearance Pupil Exam: NORMAL ACCOMODATION - Neck Exam Neck Exam: Full ROM Additional comments: Mass present on right - Respiratory Exam Respiratory Exam: Clear to Ausculation Bilateral - Cardiovascular Exam Cardiovascular Exam: REGULAR RHYTHM, +S1, +S2 - GI/Abdominal Exam GI & Abdominal Exam: Soft, Normal Bowel Sounds. absent: Tenderness Assessment and Plan (1) Anemia Assessment & Plan: Patient had been scheduled for upper endoscopy but anesthesia felt risk would be very high due to presence of mediastinal mass. Will continue pantoprazole and hold off endoscopy until the mass is treated. Status: Acute
--- NOTE | 2017-03-24 12:16 | CP.PCM.PN ---
Subjective - Date & Time of Evaluation Date of Evaluation: 03/24/17 Time of Evaluation: 11:40 - Subjective Subjective: No complaints EGD canceled as high risk given mediastinal mass by anesthesia Objective - Vital Signs/Intake and Output Vital Signs (last 24 hours): Temp Pulse Resp BP Pulse Ox 97.9 F 75 12 146/87 96 03/24/17 08:28 03/24/17 09:00 03/24/17 08:28 03/24/17 08:28 03/24/17 08:28 Intake and Output: 03/24/17 03/24/17 06:59 18:59 Intake Total 50 Balance 50 - Medications Medications: Current Medications Clopidogrel Bisulfate (Plavix) 75 mg PO DAILY [facility] Last Admin: 03/22/17 08:51 Dose: Not Given Iron Sucrose 200 mg/ Sodium (Chloride) 110 mls @ 110 mls/hr IVPB DAILY [facility] Last Admin: 03/24/17 09:58 Dose: 110 mls/hr Insulin Human Regular (Humulin R) 0 units SC [facility] PRN Reason: Protocol Last Admin: 03/24/17 08:11 Dose: Not Given Metoprolol Succinate (Toprol Xl) 25 mg PO DAILY [facility] Last Admin: 03/24/17 08:09 Dose: 25 mg Pantoprazole Sodium (Protonix Ec Tab) 40 mg PO DAILY [facility] Last Admin: 03/24/17 08:10 Dose: 40 mg Sitagliptin Phosphate (Januvia) 100 mg PO DAILY [facility] Last Admin: 03/24/17 09:59 Dose: 100 mg Tamsulosin HCl (Flomax) 0.8 mg PO [facility] Last Admin: 03/23/17 23:57 Dose: 0.8 mg - Labs Labs: 03/24/17 05:45 03/24/17 05:45 PT 14.5 Seconds (9.8-13.1) H 03/19/17 11:10 INR 1.3 (0.9-1.2) H 03/19/17 11:10 APTT 28.9 Seconds (25.6-37.1) 03/19/17 11:10 - Head Exam Head Exam: ATRAUMATIC - Eye Exam Eye Exam: Normal appearance - ENT Exam ENT Exam: Mucous Membranes Dry - Respiratory Exam Respiratory Exam: NORMAL BREATHING PATTERN - GI/Abdominal Exam GI & Abdominal Exam: Normal Bowel Sounds - Extremities Exam Extremities Exam: Normal Inspection Assessment and Plan (1) Anemia Assessment & Plan: Iron deficiency on IV iron high risk for endoscopy given mediastinal mass Status: Acute (2) Lung mass Assessment & Plan: s/p biopsy f/u pathology Status: Acute
--- NOTE | 2017-03-24 14:24 | CP.PCM.PN ---
Subjective - Date & Time of Evaluation Date of Evaluation: 03/24/17 Time of Evaluation: 10:20 - Subjective Subjective: F/U Lung Mass. Pt with no A/D, no c/o. Objective - Vital Signs/Intake and Output Vital Signs (last 24 hours): Temp Pulse Resp BP Pulse Ox 97.9 F 84 18 127/80 97 03/24/17 12:00 03/24/17 12:00 03/24/17 12:00 03/24/17 12:00 03/24/17 12:00 Intake and Output: 03/24/17 03/24/17 06:59 18:59 Intake Total 50 Balance 50 - Medications Medications: Current Medications Clopidogrel Bisulfate (Plavix) 75 mg PO DAILY [facility] Last Admin: 03/22/17 08:51 Dose: Not Given Iron Sucrose 200 mg/ Sodium (Chloride) 110 mls @ 110 mls/hr IVPB DAILY [facility] Last Admin: 03/24/17 09:58 Dose: 110 mls/hr Insulin Human Regular (Humulin R) 0 units SC ACHS [facility] PRN Reason: Protocol Last Admin: 03/24/17 12:54 Dose: 2 u Metoprolol Succinate (Toprol Xl) 25 mg PO DAILY [facility] Last Admin: 03/24/17 08:09 Dose: 25 mg Pantoprazole Sodium (Protonix Ec Tab) 40 mg PO DAILY [facility] Last Admin: 03/24/17 08:10 Dose: 40 mg Sitagliptin Phosphate (Januvia) 100 mg PO DAILY [facility] Last Admin: 03/24/17 09:59 Dose: 100 mg Tamsulosin HCl (Flomax) 0.8 mg PO HS [facility] Last Admin: 03/23/17 23:57 Dose: 0.8 mg - Labs Labs: 03/24/17 05:45 03/24/17 05:45 PT 14.5 Seconds (9.8-13.1) H 03/19/17 11:10 INR 1.3 (0.9-1.2) H 03/19/17 11:10 APTT 28.9 Seconds (25.6-37.1) 03/19/17 11:10 - Constitutional Appears: No Acute Distress - Head Exam Additional comments: Ecchymosis R face - Eye Exam Eye Exam: Conjunctival injection - ENT Exam ENT Exam: Normal Oropharynx - Neck Exam Additional comments: Large R sided Mass. - Respiratory Exam Respiratory Exam: NORMAL BREATHING PATTERN - Cardiovascular Exam Cardiovascular Exam: REGULAR RHYTHM - GI/Abdominal Exam GI & Abdominal Exam: Soft, Normal Bowel Sounds - Extremities Exam Extremities Exam: Normal Inspection - Back Exam Back Exam: NORMAL INSPECTION - Neurological Exam Neurological Exam: Alert, Oriented x3 Additional comments: Reflex normal. - Psychiatric Exam Psychiatric exam: Normal Affect - Skin Skin Exam: Warm Assessment and Plan (1) Near syncope Status: Acute (2) Facial contusion Status: Acute (3) Lung mass Status: Acute (4) Neck mass Status: Acute (5) Fall Status: Acute (6) Symptomatic anemia Status: Acute (7) Diabetes mellitus Status: Acute (8) HTN (hypertension) Status: Acute - Assessment and Plan (Free Text) Plan: EGD cancelled by Anesthesiology, PT is DNR, DNI. Continue current Tx.
[2017-03-25] MEDS: Insulin Regular 100 units/ml SC SCH ×2 (06:39→12:04)
[2017-03-25 07:07] LABS: HEMATOCRIT 29.4 % (35.0-51.0); MEAN CELL VOLUME 73.7 fl (80.0-94.0); MEAN CORPUSCULAR HEMOGLOBIN 22.3 pg (27.0-31.0); MEAN CORPUSCULAR HGB CONC 30.3 g/dL (33.0-37.0); RED CELL DISTRIBUTION WIDTH 22.4 % (11.5-14.5); WHITE BLOOD COUNT 6.5 K/uL (4.8-10.8)
[2017-03-25] MEDS: Pantoprazole 40 mg EC Tab PO SCH (08:42)
[2017-03-25] MEDS: Metoprolol Succinate 25 mg XL Tab PO SCH (08:42)
--- NOTE | 2017-03-25 12:49 | CP.PCM.PN ---
Subjective - Date & Time of Evaluation Date of Evaluation: 03/25/17 Time of Evaluation: 10:00 - Subjective Subjective: F/U Lung Mass. No A/D, no c/o. Objective - Vital Signs/Intake and Output Vital Signs (last 24 hours): Temp Pulse Resp BP Pulse Ox 97.3 F L 83 18 117/77 97 03/25/17 12:07 03/25/17 12:07 03/25/17 12:07 03/25/17 12:07 03/25/17 12:07 Intake and Output: 03/25/17 03/25/17 06:59 18:59 Intake Total 240 Balance 240 - Medications Medications: Current Medications Clopidogrel Bisulfate (Plavix) 75 mg PO DAILY [facility] Last Admin: 03/22/17 08:51 Dose: Not Given Iron Sucrose 200 mg/ Sodium (Chloride) 110 mls @ 110 mls/hr IVPB DAILY [facility] Last Admin: 03/25/17 08:42 Dose: 110 mls/hr Insulin Human Regular (Humulin R) 0 units SC ACHS [facility] PRN Reason: Protocol Last Admin: 03/25/17 12:04 Dose: 2 u Metoprolol Succinate (Toprol Xl) 25 mg PO DAILY [facility] Last Admin: 03/25/17 08:42 Dose: 25 mg Pantoprazole Sodium (Protonix Ec Tab) 40 mg PO DAILY [facility] Last Admin: 03/25/17 08:42 Dose: 40 mg Sitagliptin Phosphate (Januvia) 100 mg PO DAILY [facility] Last Admin: 03/25/17 08:42 Dose: 100 mg Tamsulosin HCl (Flomax) 0.8 mg PO HS [facility] Last Admin: 03/24/17 21:05 Dose: 0.8 mg - Labs Labs: 03/25/17 05:30 03/24/17 05:45 PT 14.5 Seconds (9.8-13.1) H 03/19/17 11:10 INR 1.3 (0.9-1.2) H 03/19/17 11:10 APTT 28.9 Seconds (25.6-37.1) 03/19/17 11:10 - Constitutional Appears: No Acute Distress - Head Exam Additional comments: Ecchymosis R face - Eye Exam Eye Exam: PERRL - ENT Exam ENT Exam: Normal Oropharynx - Neck Exam Additional comments: Mass R side - Respiratory Exam Respiratory Exam: NORMAL BREATHING PATTERN - GI/Abdominal Exam GI & Abdominal Exam: Soft, Normal Bowel Sounds - Extremities Exam Extremities Exam: Normal Inspection - Back Exam Back Exam: NORMAL INSPECTION - Neurological Exam Neurological Exam: Alert, Oriented x3 Additional comments: Reflex normal - Psychiatric Exam Psychiatric exam: Normal Mood - Skin Skin Exam: Warm Assessment and Plan (1) Near syncope Status: Acute (2) Facial contusion Status: Acute (3) Lung mass Status: Acute (4) Neck mass Status: Acute (5) Fall Status: Acute (6) Symptomatic anemia Status: Acute (7) Diabetes mellitus Status: Acute (8) HTN (hypertension) Status: Acute - Assessment and Plan (Free Text) Plan: Verbal report Bx (+) for Ca, Pt do not wants any Tx, improved and stable to be discharged home, f/u appt in my office in one week, see instruction medication sheet.
--- NOTE | 2017-03-25 13:18 | CP.PCM.PN ---
Subjective - Date & Time of Evaluation Date of Evaluation: 03/25/17 Time of Evaluation: 12:15 - Subjective Subjective: No complaints Objective - Vital Signs/Intake and Output Vital Signs (last 24 hours): Temp Pulse Resp BP Pulse Ox 97.3 F L 83 18 117/77 97 03/25/17 12:07 03/25/17 12:07 03/25/17 12:07 03/25/17 12:07 03/25/17 12:07 Intake and Output: 03/25/17 03/25/17 06:59 18:59 Intake Total 240 Balance 240 - Medications Medications: Current Medications Clopidogrel Bisulfate (Plavix) 75 mg PO DAILY [facility] Last Admin: 03/22/17 08:51 Dose: Not Given Iron Sucrose 200 mg/ Sodium (Chloride) 110 mls @ 110 mls/hr IVPB DAILY [facility] Last Admin: 03/25/17 08:42 Dose: 110 mls/hr Insulin Human Regular (Humulin R) 0 units SC ACHS [facility] PRN Reason: Protocol Last Admin: 03/25/17 12:04 Dose: 2 u Metoprolol Succinate (Toprol Xl) 25 mg PO DAILY [facility] Last Admin: 03/25/17 08:42 Dose: 25 mg Pantoprazole Sodium (Protonix Ec Tab) 40 mg PO DAILY [facility] Last Admin: 03/25/17 08:42 Dose: 40 mg Sitagliptin Phosphate (Januvia) 100 mg PO DAILY [facility] Last Admin: 03/25/17 08:42 Dose: 100 mg Tamsulosin HCl (Flomax) 0.8 mg PO [facility] Last Admin: 03/24/17 21:05 Dose: 0.8 mg - Labs Labs: 03/25/17 05:30 03/24/17 05:45 PT 14.5 Seconds (9.8-13.1) H 03/19/17 11:10 INR 1.3 (0.9-1.2) H 03/19/17 11:10 APTT 28.9 Seconds (25.6-37.1) 03/19/17 11:10 - Head Exam Head Exam: ATRAUMATIC - Eye Exam Eye Exam: Normal appearance - ENT Exam ENT Exam: Mucous Membranes Dry - Respiratory Exam Respiratory Exam: NORMAL BREATHING PATTERN - Cardiovascular Exam Cardiovascular Exam: +S1, +S2 - GI/Abdominal Exam GI & Abdominal Exam: Normal Bowel Sounds - Extremities Exam Extremities Exam: Normal Inspection Assessment and Plan (1) Anemia Assessment & Plan: iron deficiency on IV iron Status: Acute (2) Lung mass Assessment & Plan: path pending outpatient f/u of path report next week Status: Acute
[2017-03-25 15:44] VITALS: BP 125/80; PULSE 85; RESP 20; TEMP 97.8; O2SAT 96
--- NOTE | 2017-03-26 08:45 | EEG ---
DATE: 03/19/2017 This is a 16-channel electroencephalogram of awake and a drowsy adult. During the study, photic stimulation was performed, hyperventilation was not performed. The resting electroencephalogram is well organized to form 20-30 microvolt, diffuse 9-11 hertz alpha activities seen at parietal and occipital leads. Anteriorly, fast activity superimposed with 2-3 hertz delta activities seen. Intermittent bitemporal lead electrical artifacts are noted. The photic stimulation did not develop driving response noted at 2-20 hertz. IMPRESSION: This is a normal electroencephalogram of awake and a drowsy adult. During the study neither electroencephalographic paroxysmal activities nor focal slowing noted. Please correlate the findings with the neurological and radiological studies. Nomi Ge MD
--- NOTE | 2017-03-26 09:47 | PQF GENQUE ---
Dr. Guerrero pt was admitted with anemia, syncope, orthostatic hypotension and bifascicular block. After study what is the principal diagnosis for this case? This form is a permanent part of the medical record Clarification of your documentation is requested to better reflect the severity of illness and intensity of treatment of your patient. Indicators present [] Specify: [] [] Specify: [] [] Specify: [] [] Specify: [] Location in the medical record that reflects the above clinical findings: [] Treatment Provided: [] PHYSICIAN'S RESPONSE Based on your medical judgment of the clinical indicators outlined above please clarify the following: [] Practitioner response [] If unable to determine, please check the box, sign and date. Present On Admission (POA) Indicator: [] Present at the time of admission [] Not present at the time of admission [] Clinically Undetermined In responding to this query, please exercise your independent professional judgment. The fact that a question is asked does not imply that any particular answer is desired or expected. Thank you for your clarification on this documentation. If you have any questions please call:[ ] * Thank you, [ ]Yarelis Geller butadiene converter helper LASHAE
--- NOTE | 2017-04-01 11:12 | CT ---
PROCEDURE: Date of procedure: 03/22/2017 Procedure: 1. Ultrasound -guided chest wall mass biopsy. Medications: Lidocaine 1 percent 6 cubic centimeters HISTORY: Lung mass with mediastinal and chest wall invasion. TECHNIQUE: Following informed consent, the Pt's anterior chest was marked. The Pt was placed supine on the table and procedure time out was performed. Limited ultrasound showed a large complex mass in the anterior chest with invasion of the sternum. The skin was marked, prepped, and draped in the usual sterile fashion. After the skin was anesthetized with lidocaine and 18 gauge core needle was advanced percutaneously under ultrasound guidance into the mass. Upon confirmation of needle position, three 18 gauge core specimens were obtained and sent for routine pathology. The needle was removed and a xeroform dressing was applied. IMPRESSION: Ultrasound-guided biopsy of chest wall mass.
--- NOTE | 2017-04-07 11:26 | CP.PCM.DIS ---
Provider - Provider Date of Admission: 03/19/17 13:06 Attending physician: Jagdish Guerrero MD Consults: Cardiology, Gastroenterology, Hematology, Neurology and Nursing. Time Spent in preparation of Discharge (in minutes): 25 Diagnosis - Discharge Diagnosis (1) Near syncope Status: Acute Priority: High (2) Facial contusion Status: Acute Priority: High (3) Lung mass Status: Acute Priority: High (4) Neck mass Status: Acute Priority: High (5) Fall Status: Acute Priority: High (6) Symptomatic anemia Status: Acute Priority: High (7) Diabetes mellitus Status: Acute Priority: Medium (8) HTN (hypertension) Status: Acute Priority: Medium Hospital Course - Lab Results Lab Results: Most Recent Lab Values WBC 6.5 K/uL (4.8-10.8) 03/25/17 05:30 RBC 4.00 Mil/uL (4.40-5.90) L 03/25/17 05:30 Hgb 8.9 g/dL (12.0-18.0) L 03/25/17 05:30 Hct 29.4 % (35.0-51.0) L 03/25/17 05:30 MCV 73.7 fl (80.0-94.0) L 03/25/17 05:30 MCH 22.3 pg (27.0-31.0) L 03/25/17 05:30 MCHC 30.3 g/dL (33.0-37.0) L 03/25/17 05:30 RDW 22.4 % (11.5-14.5) H 03/25/17 05:30 Plt Count 196 K/uL (130-400) 03/25/17 05:30 MPV 8.9 fl (7.2-11.7) 03/19/17 10:00 Neut % (Auto) 85.0 % (50.0-75.0) H 03/19/17 10:00 Lymph % (Auto) 7.1 % (20.0-40.0) L 03/19/17 10:00 [place] % (Auto) 7.5 % (0.0-10.0) 03/19/17 10:00 Eos % (Auto) 0.3 % (0.0-4.0) 03/19/17 10:00 Baso % (Auto) 0.1 % (0.0-2.0) 03/19/17 10:00 Neut # 8.5 K/uL (1.8-7.0) H 03/19/17 10:00 Lymph # 0.7 K/uL (1.0-4.3) L 03/19/17 10:00 [place] # 0.7 K/uL (0.0-0.8) 03/19/17 10:00 Eos # 0.0 K/uL (0.0-0.7) 03/19/17 10:00 Baso # 0.0 K/uL (0.0-0.2) 03/19/17 10:00 Neutrophils % (Manual) 84 % (42-75) H 03/19/17 10:00 Lymphocytes % (Manual) 7 % (20-50) L 03/19/17 10:00 Monocytes % (Manual) 8 % (0-10) 03/19/17 10:00 Eosinophils % (Manual) 1 % (0-7) 03/19/17 10:00 Platelet Estimate Normal (NORMAL) 03/19/17 10:00 Retic Count 2.0 % (0.5-1.5) H 03/20/17 06:00 PT 14.5 Seconds (9.8-13.1) H 03/19/17 11:10 INR 1.3 (0.9-1.2) H 03/19/17 11:10 APTT 28.9 Seconds (25.6-37.1) 03/19/17 11:10 Sodium 137 mmol/l (132-148) 03/24/17 05:45 Potassium 3.6 MMOL/L (3.6-5.0) 03/24/17 05:45 Chloride 102 mmol/L (98-107) 03/24/17 05:45 Carbon Dioxide 26 mmol/L (22-30) 03/24/17 05:45 Anion Gap 13 (10-20) 03/24/17 05:45 BUN 19 mg/dl (9-20) 03/24/17 05:45 Creatinine 0.8 mg/dL (0.8-1.5) 03/24/17 05:45 Est GFR ( Amer) > 60 03/24/17 05:45 Est GFR (Non-Af Amer) > 60 03/24/17 05:45 POC Glucose (mg/dL) 236 mg/dL (65-110) H 03/25/17 11:03 Random Glucose 160 mg/dL (75-110) H 03/24/17 05:45 Hemoglobin A1c 8.8 % (4.2-6.5) H 03/20/17 10:30 Calcium 8.9 mg/dL (8.4-10.2) 03/24/17 05:45 Phosphorus 2.6 mg/dl (2.5-4.5) 03/19/17 10:00 Magnesium 1.7 MG/DL (1.6-2.3) 03/19/17 10:00 Iron 21 ug/dL (49-181) L 03/19/17 18:20 TIBC 404 ug/dL (250-450) 03/19/17 18:20 % Saturation 5 % (20-55) L 03/19/17 18:20 Ferritin 10.4 ng/mL 03/19/17 18:20 Total Bilirubin 1.4 mg/dl (0.2-1.3) H 03/20/17 06:00 AST 51 U/L (17-59) 03/20/17 06:00 ALT 45 U/L (21-72) 03/20/17 06:00 Alkaline Phosphatase 223 U/L (38-126) H 03/20/17 06:00 Lactate Dehydrogenase 788 U/L (313-618) H 03/20/17 06:00 Troponin I < 0.0120 ng/mL (0.00-0.120) 03/19/17 10:00 NT-Pro-B Natriuret Pep 71.7 pg/ml (0-900) 03/19/17 10:00 Total Protein 7.0 G/DL (6.3-8.2) 03/20/17 06:00 Albumin 3.5 g/dL (3.5-5.0) 03/20/17 06:00 Globulin 3.5 gm/dL (2.2-3.9) 03/20/17 06:00 Albumin/Globulin Ratio 1.0 (1.0-2.1) 03/20/17 06:00 Triglycerides 78 mg/DL (0-149) 03/20/17 06:00 Cholesterol 108 mg/dL (0-199) 03/20/17 06:00 LDL Cholesterol Direct 40 mg/dL (0-129) 03/20/17 06:00 HDL Cholesterol 41 MG/DL (30-70) 03/20/17 06:00 Vitamin B12 408 pg/mL (239-931) 03/19/17 18:20 Folate 18.8 ng/mL 03/20/17 06:00 RBC Folate 1689 ng/mL RBC (>280) 03/20/17 06:00 Free T4 1.07 ng/dL (0.78-2.19) 03/20/17 06:00 Thyroxine (T4) 7.80 ug/dl (5.5-11.0) 03/20/17 06:00 Total T3 0.704 nmol/L (1.49-2.60) L 03/20/17 06:00 TSH 3rd Generation 2.29 mIU/ML (0.46-4.68) 03/20/17 06:00 Urine Color Yellow (YELLOW) 03/19/17 20:18 Urine Clarity Slighty-cloudy (Clear) 03/19/17 20:18 Urine pH 5.0 (5.0-8.0) 03/19/17 20:18 Ur Specific [place] 1.024 (1.003-1.030) 03/19/17 20:18 Urine Protein 30 mg/dL (NEGATIVE) 03/19/17 20:18 Urine Glucose (UA) >=500 mg/dL (Normal) 03/19/17 20:18 Urine Ketones Trace mg/dL (NEGATIVE) 03/19/17 20:18 Urine Blood Negative (NEGATIVE) 03/19/17 20:18 Urine Nitrate Negative (NEGATIVE) 03/19/17 20:18 Urine Bilirubin Negative (NEGATIVE) 03/19/17 20:18 Urine Urobilinogen 0.2-1.0 mg/dL (0.2-1.0) 03/19/17 20:18 Ur Leukocyte Esterase Trace [place]/uL (Negative) 03/19/17 20:18 Urine RBC (Auto) 2 /hpf (0-3) 03/19/17 20:18 Urine Microscopic WBC 34 /hpf (0-5) H 03/19/17 20:18 Ur Squamous Epith Cells < 1 /hpf (0-5) 03/19/17 20:18 Urine Bacteria Rare (<OCC) 03/19/17 20:18 Stool Occult Blood Negative (NEGATIVE) 03/19/17 12:13 Blood Type A POSITIVE 03/19/17 11:35 Antibody Screen Negative 03/19/17 11:35 Crossmatch See Detail 03/19/17 11:35 BBK History Checked Patient has bt 03/19/17 11:35 - Date & Time of H&P Date of H&P: 03/20/17 Time of H&P: 12:30 Discharge Exam - Head Exam Head Exam: ATRAUMATIC, NORMAL INSPECTION, NORMOCEPHALIC Discharge Plan - Discharge Medications Prescriptions: Ferrous Sulfate [Feosol] 325 mg PO DAILY #60 tab Omeprazole 40 mg PO DAILY #30 capsule. - Follow Up Plan Condition: FAIR Disposition: DISCHARGED TO HOME CARE Instructions: Anemia (DC) Additional Instructions: pt. doing well today, denies sob, cp, n/v/d Tolerating PT patient cleared for discharge to Home today by , and E rx sent to [place] [facility] (meds will be delivered to patient"s residence tomorrow) pt. will f/u with and outpatient in 1 week cont. outpatient PT f/u labs Cont. to hold plavix for now until f/u outpatient ( d/w ) Referrals: Farhat Ferrer MD [Staff Provider] - Jagdish Guerrero MD [Staff Provider] -
== END 2017-03-25 16:00 | disposition home health service (06) | DRG 181 ==
LOC: H.ER 10:02 → H.ERHOLD 13:06 → H.TEL 14:35
PROVIDERS: ADMIT Internal Medicine Pulmonary Disease; ATTEND Internal Medicine Pulmonary Disease
PROC: 3E0234Z Introduction of Serum, Toxoid and Vaccine into Muscle, Percutaneous Approach (ICD-10-PCS; principal; 2017-03-19)
PROC: 0WB83ZX Excision of Chest Wall, Percutaneous Approach, Diagnostic (ICD-10-PCS; 2017-03-22)
DX: C34.92 Malignant neoplasm of unspecified part of left bronchus or lung (principal); I45.2 Bifascicular block; E11.9 Type 2 diabetes mellitus without complications; E86.1 Hypovolemia; I10 Essential (primary) hypertension; D50.9 Iron deficiency anemia, unspecified; R22.1 Localized swelling, mass and lump, neck; R55 Syncope and collapse; W18.30XA Fall on same level, unspecified, initial encounter; E04.9 Nontoxic goiter, unspecified; E78.00 Pure hypercholesterolemia, unspecified; E78.5 Hyperlipidemia, unspecified; I95.1 Orthostatic hypotension; N40.0 Benign prostatic hyperplasia without lower urinary tract symptoms; Z23 Encounter for immunization; S00.83XA Contusion of other part of head, initial encounter; Y92.512 Supermarket, store or market as the place of occurrence of the external cause; R91.8 Other nonspecific abnormal finding of lung field; R19.5 Other fecal abnormalities; Z53.09 Procedure and treatment not carried out because of other contraindication